=== PATIENT | female | born 1995 | race Caucasian/White ===

== ENCOUNTER 2017-11-11 17:17 | Inpatient (IN) | payer OTHER ==
[2017-11-11 18:10] VITALS: BMI 25.0
[2017-11-11 18:31] LABS: #Basophils 0.1 thou/uL (0.0-0.2); #Eosinphils 0.3 thou/uL (0.0-0.7); #Lymphocytes 2.4 thou/uL (1.20-3.40); #Monocytes 1.3 thou/uL (0.11-0.59); #Neutrophils 6.2 thou/uL (1.40-6.50); %Basophils 0.7 % (0.0-1.0); %Eosinophils 3.3 % (0.0-10.0); %Lymphocytes 23.1 % (21.0-51.0); %Monocytes 12.7 % (0.0-10.0); %Neutrophils 60.1 % (42.0-75.0); Hemoglobin 13.4 g/dL (12.0-16.0); Mean Corpuscular HGB CONC 33.4 g/dL (32.0-36.0); Mean Corpuscular Hemoglobin 31.9 pg (27.0-31.0); Mean Corpuscular Volume 95.7 fl (81.0-99.0); Mean Platelet Volume 5.7 fL (7.4-10.4); Platelet Count 591 thou/uL (130-400); RBC Distribution Width 11.3 % (11.5-14.5); Red Blood Cell (RBC) Count 4.19 mill/uL (4.20-5.40); White Blood Cell (WBC) Count 10.4 thou/uL (4.8-10.8)
[2017-11-11] MEDS: Sodium Chloride 0.9% 1,000 ML IV SCH (18:53)
[2017-11-11 18:58] LABS: ALT (SGPT) 11 U/L (8-55); AST (SGOT) 14 U/L (5-34); Albumin 4.3 g/dL (3.5-5.0); Alkaline Phosphatase 77 U/L (40-150); Anion Gap 13 mmol/L (10-20); BUN (Urea Nitrogen) 7 mg/dL (7.0-18.7); Bilirubin, Total 0.5 mg/dL (0.2-1.2); CRP (Inflammatory) 2.51 mg/dL (= or < 0.5); Calc. Creatinine Clearance 115 mL/min (70-130); Calcium 9.9 mg/dL (7.8-10.44); Carbon Dioxide 25 mmol/L (22-29); Chloride 104 mmol/L (98-107); Estimated GFR-MDRD Greater than 90; Globulin 4.5 g/dL (2.4-3.5); Glucose 95 mg/dL (70-105); Protein, Total 8.8 g/dL (6.0-8.3); Sodium 138 mmol/L (136-145)
[2017-11-11] MEDS ORDERED: Sodium Chloride 0.9% 1,000 ML IV SCH (19:00)
[2017-11-11 20:13] LABS: Bilirubin Negative (Negative); Blood, Urine Negative (Negative); Clarity CLEAR (Clear); Glucose, Urine (Dipstick) Negative (Negative); Leukocyte Small (Negative); Nitrite Negative (Negative); Protein, Urine (Dipstick) Negative (Neg-Trace); Specific Gravity, Urine 1.018 (1.002-1.036)
[2017-11-11 20:16] LABS: Bacteria/HPF Rare-Few HPF (None Seen); Hyaline Casts/LPF 0-3 HYALINE CAST LPF (0-3 Hyaline); Pathc Cast-AUWi Flag 0.13 (0-2.49); Squamous Epithelial 0-3 HPF (0-3)
[2017-11-11] MEDS: traMADol HCl 50 MG TAB PO PRN (21:54)
[2017-11-11] MEDS ORDERED: Acetaminophen 325 MG TAB PO PRN (21:57)
[2017-11-11] MEDS ORDERED: Zolpidem Tartrate 5 MG TAB PO PRN (21:57)
--- NOTE | 2017-11-11 22:38 | HP ---
PRIMARY CARE PHYSICIAN: Dr. Arnold Alicea at [facility]. CHIEF COMPLAINT: Bloody diarrhea. HISTORY OF PRESENT ILLNESS: Ms. Jama is a pleasant 22-year-old lady who was seen at [facility] on 11/11/2017, after she was sent to the hospital for direct admission by her gas troenterologist. She reports that she has been having diffuse abdominal discomfort as well as bloody diarrhea over sev eral days. She reports having multiple bloody bowel movements today. She also reports feeling light headed once today. She denies any chest pain or shortness of breath. She denies any fevers or chill s. She has not eaten most of today. She reports that she was on Remicade for the last 4 years. She was sent to the hospital for further management while awaiting approval for Humira. REVIEW OF SYSTEMS: The following complete review of systems was negative, unless otherwise mentioned in the HPI or below: Constitutional: Weight loss or gain, ability to conduct usual activities. Skin: Rash, itching. Eyes: Double vision, pain. ENT/Mouth: Nose bleeding, neck stiffness, pain, tenderness. Cardiovascular: Palpitations, dyspnea on exertion, orthopnea. Respiratory: Shortness of breath, wheezing, cough, hemoptysis, fever, or night sweats. Gastrointestinal: Poor appetite, abdominal pain, heartburn, nausea, vomiting, constipation, or diarr hea. Genitourinary: Urgency, frequency, dysuria, nocturia. Musculoskeletal: Pain, swelling. Neurologic/Psychiatric: Anxiety, depression. Allergy/Immunologic: Skin rash, bleeding tendency. PAST MEDICAL HISTORY: Significant for ulcerative colitis and Crohn's disease. PAST SURGICAL HISTORY: Significant for right hemicolectomy. ALLERGIES: CODEINE. CURRENT MEDICATIONS: Six-mercaptopurine 50 mg daily. SOCIAL HISTORY: Patient denies tobacco use, alcohol use, or recreational drug use. FAMILY HISTORY: Significant for Crohn's disease and ulcerative colitis in her mother and grandfather . PHYSICAL EXAMINATION: GENERAL: Ms. Jama is awake and alert, not in acute distress. VITAL SIGNS: She is afebrile. Blood pressure is 111/70, pulse is 86. She is breathing at rate of 1 4 and saturating 100% on room air. EYES: No scleral icterus, no conjunctival pallor. ENT: Moist mucosal membranes, no oropharyngeal erythema or exudates. NECK: Supple, nontender, normal range of movement, trachea is midline. RESPIRATORY: Accessory muscles of breathing are not active. Chest wall movements are symmetric bila terally. LUNGS: Clear to auscultation without wheeze, rhonchi, or crepitations. CARDIOVASCULAR: S1 and S2 are heard, regular. Peripheral pulses are palpable. No carotid bruit, no pericardial rub. ABDOMEN: Soft, nontender, bowel sounds heard, no hepatomegaly, no splenomegaly. EXTREMITIES: She has a scar over the abdomen. NEUROLOGIC: Cranial nerves II-XII are intact, deep tendon reflexes are 2+. MUSCULOSKELETAL: Power is 5/5 in all 4 extremities. Normal range of movement at all major extremity joints. LYMPHATIC: No cervical lymphadenopathy. SKIN: No rashes or subcutaneous nodules. PSYCHIATRIC: Normal mood, normal affect, patient is oriented to person, place, and time. LABORATORY DATA: Ms. Muller labs and investigations were reviewed. She has a normal white count, normal hemoglobin, elevated platelet count of 591,000, last known platelet count was 435,000 on 10/25, normal electrolytes, normal creatinine, elevated C-reactive protein of 2.51, normal albumin a nd urinalysis that is positive for ketones and small amount of leukocyte esterase. ASSESSMENT AND PLAN: Ms. Valverde is a pleasant 22-year-old lady who was seen at [facility] on 11/11/2017. Her problem list includes: 1. Bloody diarrhea: Due to flareup of Crohn's and ulcerative colitis. 2. Ulcerative colitis/Crohn's disease: Patient has been started on intravenous steroids by Gastroen terology Service. She does not wish to take tonight's dose because of the possibility that it will k eep her up during the night. She will start steroids in the morning. She is also awaiting approval for Humira. 3. Thrombocythemia: Chronic, likely reactive. We will recheck platelet count. Many thanks for allowing me to participate in your patient's care. Please feel free to contact me wi th any questions or concerns. LEVEL OF RISK: Moderate. LEVEL OF COMPLEXITY: Moderate.
--- NOTE | 2017-11-12 01:46 | CON ---
DATE OF CONSULTATION: 11/11/2017 HISTORY OF PRESENT ILLNESS: The patient is a 22-year-old female, patient of Dr. Onur ray h a long history of Crohn's disease. She reports over the last several weeks, she has had progressiv leela worsening diarrhea. She reports the diarrhea is mostly blood with little bit of mucus and very l ittle stool. She has 1-2 tablespoons every 20-30 minutes, particularly worsened if she is up and wal maurice around. She reports diffuse abdominal discomfort, but not significant pain. She reports she gee s had no vomiting, but she does feel nausea, she has not had much p.o. intake. She has lost 10 pound s over the last several weeks. She has been on Remicade and 6-MP, but this has recently been stopped and she is due to start Humira this Wednesday. She does not like oral steroids because they interfere with her sleep. PAST MEDICAL HISTORY: Anxiety, asthma, indeterminate colitis. PAST SURGICAL HISTORY: Includes right hemicolectomy secondary to perforation. ALLERGIES: CODEINE. MEDICATIONS: At this present time include "enema" 100 mg per 60 mL 1 enema every night for 14 days, Remicade 600 mg at 10 mg/kg every 8 weeks, 6-mercaptopurine 50 mg 1 p.o. daily, Restasis eyedrops. SOCIAL HISTORY: She drinks rarely. Does not smoke. FAMILY HISTORY: Significant for autoimmune disease. REVIEW OF SYSTEMS: Ten systems were reviewed and negative for above. PHYSICAL EXAMINATION: VITAL SIGNS: Shows temperature 99.5, pulse 82, respiratory rate 18, blood pressure 105/79. HEENT: Unremarkable. NECK: Supple. CHEST: Clear. CARDIOVASCULAR: Regular rate and rhythm. ABDOMEN: Soft, nontender, without organomegaly or masses. RECTAL: Deferred. EXTREMITIES: Normal. NEUROLOGIC: Nonfocal. LABORATORY DATA: Shows normal white count of 10.4, hemoglobin 13.4, hematocrit of 40.2, platelet cou nt 591. Chemistries significant for C-reactive protein 2.51. Total protein 88, globulin 45. Last p rocedure was performed by the Dr. Mohr on 12/17/2016 showed ileal to be normal and anastomosis was normal. Descending and transverse colon were normal. Some scarred sigmoid colon was normal other th an scarring and eroded vascular plaque was in the rectum, indicating very mild proctitis. Prior to t hat in 07/23/2017, colonoscopy showed fairly normal appearing colon. Laboratory showed CMV DNA Ultra quant was negative. Also on October chemistries were normal. Lipase was 16. CRP was 0.87. Sed ra te was 10. CBC was essentially normal. Histoplasma antigen was less than 0.5. Stool was presence o f elevated fecal lactoferrin. C. diff was negative. Prior biopsies from December showed chronic mod erate active colitis and rectal biopsies and chronic mild active colitis and sigmoid biopsies. Prome kayla labs showed detectable serum infliximab and detectable antibodies to infliximab. ASSESSMENT: 1. A 22-year-old female with history of indeterminate colitis, now with worsening abdominal discomfo rt and bloody diarrhea. The diarrhea sounds like if it is almost anal outlet bleeding or possibly a proctitis related bleeding. She did not have a large amount of associated diarrhea. Therefore, I do not think that she has a colitis affecting more proximal portions of the colon. 2. Right colon resection secondary to perforation. RECOMMENDATIONS: 1. We will continue 6-MP, we will start some oral steroids after tonight. 2. Rehydrate. 3. I think we will probably need to do a colonoscopy on this patient to further elucidate the extent of her active disease. 4. Agree with switching from Remicade to Humira, we will see if we were able to obtain Humira in the hospital or bringing in her Humira for loading.
[2017-11-12] MEDS: Sodium Chloride 0.9% 1,000 ML IV SCH ×5 (02:30→18:54)
[2017-11-12 04:45] LABS: Anion Gap 12 mmol/L (10-20); BUN (Urea Nitrogen) 4 mg/dL (7.0-18.7); Calc. Creatinine Clearance 126 mL/min (70-130); Calcium 8.6 mg/dL (7.8-10.44); Carbon Dioxide 21 mmol/L (22-29); Chloride 108 mmol/L (98-107); Estimated GFR-MDRD Greater than 90; Glucose 97 mg/dL (70-105); Potassium 3.8 mmol/L (3.5-5.1); Sodium 137 mmol/L (136-145)
[2017-11-12 04:58] LABS: #Eosinphils 0.4 thou/uL (0.0-0.7); #Lymphocytes 2.2 thou/uL (1.20-3.40); #Monocytes 1.4 thou/uL (0.11-0.59); %Basophils 0.4 % (0.0-1.0); %Eosinophils 3.3 % (0.0-10.0); %Lymphocytes 20.1 % (21.0-51.0); %Monocytes 12.6 % (0.0-10.0); %Neutrophils 63.6 % (42.0-75.0); Hemoglobin 11.2 g/dL (12.0-16.0); Mean Corpuscular HGB CONC 33.7 g/dL (32.0-36.0); Mean Corpuscular Hemoglobin 32.2 pg (27.0-31.0); Mean Corpuscular Volume 95.7 fl (81.0-99.0); Mean Platelet Volume 5.9 fL (7.4-10.4); Platelet Count 465 thou/uL (130-400); RBC Distribution Width 11.2 % (11.5-14.5); Red Blood Cell (RBC) Count 3.47 mill/uL (4.20-5.40)
[2017-11-12] MEDS: traMADol HCl 50 MG TAB PO PRN (06:12)
--- NOTE | 2017-11-12 09:58 | PDOC.PN ---
- Subjective Encounter Start Date: 11/12/17 Encounter Start Time: 07:00 -: old records requested/rev pt has hematochesia and diarrhoea, no fever Patient seen and examined. No overnight events - Objective MAR Reviewed: Yes Vital Signs & Weight: Vital Signs (12 hours) Temp Pulse Resp BP Pulse Ox 11/12/17 08:50 99.4 F 104 H 18 99 11/12/17 06:55 99.4 F 104 H 18 111/69 99 Weight Weight 128 lb 8 oz I&O: 11/11/17 11/12/17 11/13/17 06:59 06:59 06:59 Intake Total 1900 Balance 1900 Result Diagrams: 11/12/17 04:10 11/12/17 04:10 Phys Exam - Physical Examination Constitutional: NAD HEENT: PERRLA, moist MMs, sclera anicteric Neck: no JVD, supple Respiratory: no wheezing, no rales, no rhonchi Cardiovascular: RRR, no significant murmur, no rub Gastrointestinal: soft, non-tender, no distention, positive bowel sounds Musculoskeletal: no edema, pulses present Neurological: non-focal, normal sensation Lymphatic: no nodes Psychiatric: normal affect, A&O x 3 Skin: no rash, normal turgor Dx/Plan (1) Diarrhea Code(s): R19.7 - DIARRHEA, UNSPECIFIED Status: Acute (2) Exacerbation of ulcerative colitis Code(s): K51.90 - ULCERATIVE COLITIS, UNSPECIFIED, WITHOUT COMPLICATIONS Status: Acute (3) Hematochezia Code(s): K92.1 - MELENA Status: Acute (4) Anemia in chronic illness Code(s): D63.8 - ANEMIA IN OTHER CHRONIC DISEASES CLASSIFIED ELSEWHERE Status : Chronic - Plan cont current plan of care * continue ivf * continue solumedrol * GI following * medication reviewed as below * symptomatic treatment. Review of Systems - Review of Systems Constitutional: negative: fever, chills, sweats, weakness, malaise, other Eyes: negative: Pain, Vision Change, Conjunctivae Inflammation, Eyelid Inflammation, Redness, Other ENT: negative: Ear Pain, Ear Discharge, Nose Pain, Nose Discharge, Nose Congestion, Mouth Pain, Mouth Swelling, Throat Pain, Throat Swelling, Other Respiratory: negative: Cough, Dry, Shortness of Breath, Hemoptysis, SOB with Excertion, Pleuritic Pain, Sputum, Wheezing Cardiovascular: negative: chest pain, palpitations, orthopnea, paroxysmal nocturnal dyspnea, edema, light headedness, other Gastrointestinal: Diarrhea, Hematochezia. negative: Nausea, Vomiting, Abdominal Pain, Constipation, Melena, Other Genitourinary: negative: Dysuria, Frequency, Incontinence, Hematuria, Retention , Other Musculoskeletal: negative: Neck Pain, Shoulder Pain, Arm Pain, Back Pain, Hand Pain, Leg Pain, Foot Pain, Other Skin: negative: Rash, Lesions, [place], Bruising, Other Neurological: negative: Weakness, Numbness, Incoordination, Change in Speech, Confusion, Seizures, Other - Medications/Allergies Allergies/Adverse Reactions: Allergies Allergy/AdvReac Type Severity Reaction Status Date / Time codeine Allergy Verified 11/11/17 22:33 Medications: Current Medications Acetaminophen (Tylenol) 650 mg PO Q4H PRN PRN Reason: Headache/Fever or Pain Sodium Chloride (Normal Saline 0.9%) 1,000 mls @ 125 mls/hr IV .Q8H [facility] Last Admin: 11/12/17 02:30 Dose: 1,000 mls Mercaptopurine (Purinethol) 50 mg PO DAILY [facility] Last Admin: 11/12/17 08:26 Dose: Not Given Methylprednisolone Sodium Succinate (Solu-Medrol) 20 mg IVP 0600,1200,1800 [facility] Last Admin: 11/12/17 06:08 Dose: 20 mg Tramadol HCl (Ultram) 50 mg PO Q8H PRN PRN Reason: Moderate Pain (4-6) Last Admin: 11/12/17 06:12 Dose: 50 mg Zolpidem Tartrate (Ambien) 5 mg PO HSPRN PRN PRN Reason: Insomnia
[2017-11-12] MEDS ORDERED: Sodium Chloride 0.9% 10 ML ONE (12:41)
--- NOTE | 2017-11-12 18:58 | PRG ---
DATE OF SERVICE: 11/12/2017 SUBJECTIVE: The patient is feeling better today. She reports the ulcers in her mouth have improved. She has not had many bowel movements today, but she reports she is not eating as well. She says rebecca enciso is scared to eat because of the abdominal discomfort that this will cause. OBJECTIVE: VITAL SIGNS: Temperature 98.0, pulse of 70, respiratory rate 14, blood pressure 106/63. CHEST: Clear. CARDIOVASCULAR: Regular rate and rhythm. ABDOMEN: Benign. LABORATORY DATA: Shows a white blood cell count of 11.0, hemoglobin 11.2, hematocrit 33.2. Chemistr ies shows CO2 of 21. ASSESSMENT: 1. Indeterminate colitis flare. 2. History of right colon resection. RECOMMENDATIONS: 1. Flexible sigmoidoscopy in a.m. 2. Continue 6-MP. 3. Continue IV steroids. 4. Begin Humira when available.
[2017-11-12] MEDS: MERCAPTOPURINE 50 MG PO SCH (21:18)
[2017-11-13] MEDS: traMADol HCl 50 MG TAB PO PRN ×4 (00:01→21:03)
[2017-11-13] MEDS: Sodium Chloride 0.9% 1,000 ML IV SCH ×3 (02:30→17:17)
[2017-11-13] MEDS ORDERED: Ondansetron HCl/PF 4 MG/2 ML Vial IVP PRN (09:04)
[2017-11-13] MEDS ORDERED: Promethazine HCl 25 MG/ML VIAL IM PRN (09:04)
[2017-11-13] MEDS ORDERED: Promethazine HCl 25 MG/ML VIAL SLOW IVP PRN (09:04)
[2017-11-13] MEDS ORDERED: PROPOFOL 200 MG/20 ML VIAL ONE (09:14)
--- NOTE | 2017-11-13 13:22 | OP ---
PREOPERATIVE DIAGNOSIS: Indeterminate colitis exacerbation. DESCRIPTION OF PROCEDURE: After informed consent was obtained, the patient was placed in the left la teral decubitus position. Anesthesia was administered per the Anesthesia Department. Forward-viewin g endoscope was inserted into the rectum after perianal inspection and rectal exam were normal. It w as passed to the midtransverse colon where the prep limited visualization. That area of the colon ap peared to be endoscopically normal. Beginning at approximately 65 cm from the anal verge, there was a circumferential colitis that involved internal left colon to the anus. Biopsies were taken randoml y from that area. There was granularity mucus and friability with bleeding consistent with ulcerativ e colitis. ASSESSMENT: 1. Diffuse colitis from the anus to 65 cm endoscopically consistent with the UC - status post biopsy . 2. Otherwise normal unprepped flexible sigmoidoscopy. RECOMMENDATIONS: 1. Continue 6-MP. 2. Continue IV steroids. 3. Begin Humira when available.
--- NOTE | 2017-11-13 13:25 | PDOC.PN ---
- Subjective Encounter Start Date: 11/13/17 Encounter Start Time: 13:23 Patient seen and examined, scope for today, will await results, no new symptoms or complaints. Family at bedside, all questions answered. - Objective Vital Signs & Weight: Vital Signs (12 hours) Temp Pulse Resp BP Pulse Ox 11/13/17 11:30 98.0 F 70 14 121/64 100 11/13/17 10:00 98.4 F 75 14 11/13/17 07:05 98.4 F 75 14 109/67 100 Weight Admit Weight 128 lb Weight 128 lb I&O: 11/12/17 11/13/17 11/14/17 06:59 06:59 06:59 Intake Total 3520 Balance 3520 Result Diagrams: 11/12/17 04:10 11/12/17 04:10 Phys Exam - Physical Examination Constitutional: NAD HEENT: PERRLA, moist MMs, sclera anicteric Neck: no nodes, no JVD Respiratory: no wheezing, no rales, no rhonchi Cardiovascular: RRR, no significant murmur Gastrointestinal: soft, no distention mildly tender to palpation Musculoskeletal: no edema, pulses present Neurological: non-focal, normal sensation Lymphatic: no nodes Psychiatric: normal affect, A&O x 3 Skin: no rash Dx/Plan (1) Diarrhea Code(s): R19.7 - DIARRHEA, UNSPECIFIED Status: Acute (2) Exacerbation of ulcerative colitis Code(s): K51.90 - ULCERATIVE COLITIS, UNSPECIFIED, WITHOUT COMPLICATIONS Status: Acute (3) Hematochezia Code(s): K92.1 - MELENA Status: Acute (4) Anemia in chronic illness Code(s): D63.8 - ANEMIA IN OTHER CHRONIC DISEASES CLASSIFIED ELSEWHERE Status : Chronic - Plan * scope for today * pain control * cont w/ IV steroids and current medical management * case and plan d/w patient and family at length, they understand and agree with this plan
[2017-11-13] MEDS: MERCAPTOPURINE 50 MG PO SCH (21:03)
[2017-11-14] MEDS: Sodium Chloride 0.9% 1,000 ML IV SCH ×3 (00:30→17:33)
[2017-11-14] MEDS: traMADol HCl 50 MG TAB PO PRN ×4 (03:47→22:51)
--- NOTE | 2017-11-14 10:40 | PDOC.PN ---
- Subjective Encounter Start Date: 11/14/17 Encounter Start Time: 10:38 Patient seen and examined, no new issues or complaints. - Objective Vital Signs & Weight: Vital Signs (12 hours) Temp Pulse Resp BP Pulse Ox 11/14/17 08:00 97.5 F L 56 L 16 11/14/17 07:20 97.5 F L 56 L 16 112/71 100 Weight Admit Weight 128 lb Weight 128 lb I&O: 11/13/17 11/14/17 11/15/17 06:59 06:59 06:59 Intake Total 3520 1310 Balance 3520 1310 Result Diagrams: 11/12/17 04:10 11/12/17 04:10 Phys Exam - Physical Examination Constitutional: NAD HEENT: PERRLA, moist MMs Neck: no nodes, no JVD Respiratory: no wheezing, no rales Cardiovascular: RRR, no significant murmur Gastrointestinal: soft, no distention, positive bowel sounds Musculoskeletal: no edema, pulses present Neurological: non-focal, normal sensation Lymphatic: no nodes Psychiatric: normal affect, A&O x 3 Skin: no rash, normal turgor Dx/Plan (1) Diarrhea Code(s): R19.7 - DIARRHEA, UNSPECIFIED Status: Acute (2) Exacerbation of ulcerative colitis Code(s): K51.90 - ULCERATIVE COLITIS, UNSPECIFIED, WITHOUT COMPLICATIONS Status: Acute (3) Hematochezia Code(s): K92.1 - MELENA Status: Acute (4) Anemia in chronic illness Code(s): D63.8 - ANEMIA IN OTHER CHRONIC DISEASES CLASSIFIED ELSEWHERE Status : Chronic - Plan * continue current tx plan * IV steroids * valeria approval pending * further management per GI * case and plan d/w patient's mother and patient at length, they understand and agree with this plan
--- NOTE | 2017-11-14 14:33 | PRG ---
DATE OF SERVICE: 11/14/2017 SUBJECTIVE: The patient continues to have blood, abdominal cramps, poor p.o. intake. She has not ga ined much benefit from the steroids. OBJECTIVE: VITAL SIGNS: Temperature 97.5, pulse 56, respiratory rate 16, and blood pressure 112/71. CHEST: Clear. CARDIOVASCULAR: Regular rate and rhythm. ABDOMEN: Soft, slightly tender in the lower quadrants. LABORATORY DATA: Shows no new labs. ASSESSMENT: Crohn exacerbation - the patient is not getting much benefit from steroids. RECOMMENDATIONS: 1. We will switch to as soon as it arrives, this is supposed to be on Wednesday. 2. Continue IV steroids. 3. Continue 6-MP. 4. Repeat labs.
[2017-11-14] MEDS: MERCAPTOPURINE 50 MG PO SCH (22:50)
[2017-11-15] MEDS: Sodium Chloride 0.9% 1,000 ML IV SCH ×3 (01:25→17:33)
[2017-11-15] MEDS: traMADol HCl 50 MG TAB PO PRN ×4 (05:18→23:05)
[2017-11-15 06:15] LABS: ALT (SGPT) 8 U/L (8-55); AST (SGOT) 9 U/L (5-34); Albumin 3.3 g/dL (3.5-5.0); Alkaline Phosphatase 53 U/L (40-150); Anion Gap 12 mmol/L (10-20); BUN (Urea Nitrogen) 9 mg/dL (7.0-18.7); Bilirubin, Total 0.4 mg/dL (0.2-1.2); Calc. Creatinine Clearance 136 mL/min (70-130); Calcium 8.7 mg/dL (7.8-10.44); Carbon Dioxide 25 mmol/L (22-29); Chloride 103 mmol/L (98-107); Estimated GFR-MDRD Greater than 90; Globulin 3.4 g/dL (2.4-3.5); Glucose 90 mg/dL (70-105); Potassium 4.1 mmol/L (3.5-5.1); Protein, Total 6.7 g/dL (6.0-8.3); Sodium 136 mmol/L (136-145)
[2017-11-15 06:22] LABS: Hemoglobin 11.7 g/dL (12.0-16.0); MDiff Complete? YES; Mean Corpuscular HGB CONC 33.9 g/dL (32.0-36.0); Mean Corpuscular Hemoglobin 32.7 pg (27.0-31.0); Mean Corpuscular Volume 96.4 fl (81.0-99.0); Mean Platelet Volume 6.3 fL (7.4-10.4); Platelet Count 506 thou/uL (130-400); RBC Distribution Width 11.1 % (11.5-14.5); Red Blood Cell (RBC) Count 3.57 mill/uL (4.20-5.40); White Blood Cell (WBC) Count 9.9 thou/uL (4.8-10.8)
[2017-11-15 06:23] LABS: Band 6 % (5-11); Lymphocytes 29 % (21-51); Monocytes 15 % (0-10); Neutrophil 50 % (42-75); PLT Morphology Comment Appears Increased
--- NOTE | 2017-11-15 11:44 | PDOC.PN ---
- Subjective Encounter Start Date: 11/15/17 Encounter Start Time: 07:00 Patient seen and examined. No new complaints. No overnight events - Objective MAR Reviewed: Yes Vital Signs & Weight: Vital Signs (12 hours) Temp Pulse Resp BP Pulse Ox 11/15/17 08:00 98.1 F 58 L 14 11/15/17 07:05 98.1 F 58 L 14 119/78 99 Weight Admit Weight 128 lb Weight 128 lb I&O: 11/14/17 11/15/17 11/16/17 06:59 06:59 06:59 Intake Total 1310 3930.5 Balance 1310 3930.5 Result Diagrams: 11/15/17 04:51 11/15/17 04:51 Phys Exam - Physical Examination Constitutional: NAD HEENT: PERRLA, moist MMs, sclera anicteric Neck: no JVD, supple Respiratory: no wheezing, no rales, no rhonchi Cardiovascular: RRR, no significant murmur, no rub Gastrointestinal: soft, non-tender, no distention, positive bowel sounds Musculoskeletal: no edema, pulses present Neurological: non-focal, normal sensation, moves all 4 limbs Lymphatic: no nodes Psychiatric: normal affect, A&O x 3 Skin: no rash, normal turgor Dx/Plan (1) Diarrhea Code(s): R19.7 - DIARRHEA, UNSPECIFIED Status: Acute (2) Exacerbation of ulcerative colitis Code(s): K51.90 - ULCERATIVE COLITIS, UNSPECIFIED, WITHOUT COMPLICATIONS Status: Acute (3) Hematochezia Code(s): K92.1 - MELENA Status: Acute (4) Anemia in chronic illness Code(s): D63.8 - ANEMIA IN OTHER CHRONIC DISEASES CLASSIFIED ELSEWHERE Status : Chronic - Plan cont current plan of care, plan discussed w/ family * medication reviewed as below * symptomatic treatment * await Humira approval * GI following. Review of Systems - Review of Systems Constitutional: negative: fever, chills, sweats, weakness, malaise, other Eyes: negative: Pain, Vision Change, Conjunctivae Inflammation, Eyelid Inflammation, Redness, Other ENT: negative: Ear Pain, Ear Discharge, Nose Pain, Nose Discharge, Nose Congestion, Mouth Pain, Mouth Swelling, Throat Pain, Throat Swelling, Other Respiratory: negative: Cough, Dry, Shortness of Breath, Hemoptysis, SOB with Excertion, Pleuritic Pain, Sputum, Wheezing Cardiovascular: negative: chest pain, palpitations, orthopnea, paroxysmal nocturnal dyspnea, edema, light headedness, other Gastrointestinal: Diarrhea, Hematochezia. negative: Nausea, Vomiting, Abdominal Pain, Constipation, Melena, Other Genitourinary: negative: Dysuria, Frequency, Incontinence, Hematuria, Retention , Other Musculoskeletal: negative: Neck Pain, Shoulder Pain, Arm Pain, Back Pain, Hand Pain, Leg Pain, Foot Pain, Other Skin: negative: Rash, Lesions, [place], Bruising, Other Neurological: negative: Weakness, Numbness, Incoordination, Change in Speech, Confusion, Seizures, Other - Medications/Allergies Allergies/Adverse Reactions: Allergies Allergy/AdvReac Type Severity Reaction Status Date / Time codeine Allergy Verified 11/11/17 22:33 Medications: Current Medications Acetaminophen (Tylenol) 650 mg PO Q4H PRN PRN Reason: Headache/Fever or Pain Sodium Chloride (Normal Saline 0.9%) 1,000 mls @ 125 mls/hr IV .Q8H [facility] Last Admin: 11/15/17 09:45 Dose: 1,000 mls Methylprednisolone Sodium Succinate (Solu-Medrol) 20 mg IVP 0600,1200,1800 [facility] Last Admin: 11/15/17 11:25 Dose: 20 mg Mercaptopurine 50 Mg 0 each PO HS [facility] Last Admin: 11/14/17 22:50 Dose: 1 each Sodium Chloride (Flush - Normal Saline) 10 ml IVF PRN PRN PRN Reason: Saline Flush Tramadol HCl (Ultram) 50 mg PO Q8H PRN PRN Reason: Moderate Pain (4-6) Last Admin: 11/13/17 21:03 Dose: 50 mg Tramadol HCl (Ultram) 50 mg PO Q6H PRN PRN Reason: Pain 4-6 Last Admin: 11/15/17 11:25 Dose: 50 mg Zolpidem Tartrate (Ambien) 5 mg PO HSPRN PRN PRN Reason: Insomnia
[2017-11-15] MEDS ORDERED: Adalimumab 40 MG/0.8 ML SYRINGE SC SCH (15:45)
[2017-11-15] MEDS: MERCAPTOPURINE 50 MG PO SCH (22:50)
[2017-11-16] MEDS: Sodium Chloride 0.9% 1,000 ML IV SCH ×3 (01:27→17:44)
[2017-11-16] MEDS: traMADol HCl 50 MG TAB PO PRN ×4 (05:09→23:06)
--- NOTE | 2017-11-16 09:55 | PDOC.PN ---
- Subjective Encounter Start Date: 11/16/17 Encounter Start Time: 06:00 Patient seen and examined. No new complaints. No overnight events clinically appears better but per pt she is not eating enough - Objective MAR Reviewed: Yes Vital Signs & Weight: Vital Signs (12 hours) Temp Pulse Resp BP Pulse Ox 11/16/17 08:05 98.1 F 64 16 100 11/16/17 07:15 98.1 F 64 16 94/58 L 100 11/16/17 05:32 98 Weight Admit Weight 128 lb Weight 128 lb I&O: 11/15/17 11/16/17 11/17/17 06:59 06:59 06:59 Intake Total 3930.5 3470 Balance 3930.5 3470 Result Diagrams: 11/15/17 04:51 11/15/17 04:51 Phys Exam - Physical Examination Constitutional: NAD HEENT: PERRLA, moist MMs, sclera anicteric Neck: no JVD, supple Respiratory: no wheezing, no rales, no rhonchi Cardiovascular: RRR, no significant murmur, no rub Gastrointestinal: soft, non-tender, no distention, positive bowel sounds Musculoskeletal: no edema, pulses present Neurological: non-focal, normal sensation, moves all 4 limbs Psychiatric: normal affect, A&O x 3 Skin: no rash, normal turgor Dx/Plan (1) Diarrhea Code(s): R19.7 - DIARRHEA, UNSPECIFIED Status: Acute (2) Exacerbation of ulcerative colitis Code(s): K51.90 - ULCERATIVE COLITIS, UNSPECIFIED, WITHOUT COMPLICATIONS Status: Acute (3) Hematochezia Code(s): K92.1 - MELENA Status: Acute (4) Anemia in chronic illness Code(s): D63.8 - ANEMIA IN OTHER CHRONIC DISEASES CLASSIFIED ELSEWHERE Status : Chronic - Plan cont current plan of care * humira given * on IVF * on IV steroid * will defer discharge decision to GI * medication reviewed as below * symptomatic treatment. Review of Systems - Review of Systems ENT: negative: Ear Pain, Ear Discharge, Nose Pain, Nose Discharge, Nose Congestion, Mouth Pain, Mouth Swelling, Throat Pain, Throat Swelling, Other Respiratory: negative: Cough, Dry, Shortness of Breath, Hemoptysis, SOB with Excertion, Pleuritic Pain, Sputum, Wheezing Cardiovascular: negative: chest pain, palpitations, orthopnea, paroxysmal nocturnal dyspnea, edema, light headedness, other Gastrointestinal: Diarrhea. negative: Nausea, Vomiting, Abdominal Pain, Constipation, Melena, Hematochezia, Other Genitourinary: negative: Dysuria, Frequency, Incontinence, Hematuria, Retention , Other Musculoskeletal: negative: Neck Pain, Shoulder Pain, Arm Pain, Back Pain, Hand Pain, Leg Pain, Foot Pain, Other Skin: negative: Rash, Lesions, [place], Bruising, Other - Medications/Allergies Allergies/Adverse Reactions: Allergies Allergy/AdvReac Type Severity Reaction Status Date / Time codeine Allergy Verified 11/11/17 22:33 Medications: Current Medications Acetaminophen (Tylenol) 650 mg PO Q4H PRN PRN Reason: Headache/Fever or Pain Sodium Chloride (Normal Saline 0.9%) 1,000 mls @ 125 mls/hr IV .Q8H [facility] Last Admin: 11/16/17 01:27 Dose: 1,000 mls Methylprednisolone Sodium Succinate (Solu-Medrol) 20 mg IVP 0600,1200,1800 [facility] Last Admin: 11/16/17 05:07 Dose: 20 mg Mercaptopurine 50 Mg 0 each PO HS [facility] Last Admin: 11/15/17 22:50 Dose: 1 each Sodium Chloride (Flush - Normal Saline) 10 ml IVF PRN PRN PRN Reason: Saline Flush Tramadol HCl (Ultram) 50 mg PO Q8H PRN PRN Reason: Moderate Pain (4-6) Last Admin: 11/13/17 21:03 Dose: 50 mg Tramadol HCl (Ultram) 50 mg PO Q6H PRN PRN Reason: Pain 4-6 Last Admin: 11/16/17 05:09 Dose: 50 mg Zolpidem Tartrate (Ambien) 5 mg PO HSPRN PRN PRN Reason: Insomnia
--- NOTE | 2017-11-16 12:26 | PRG ---
DATE OF SERVICE: 11/16/2017 Ms. Jama is still having diarrhea, mainly just small amounts of mucoid stool and blood 6-10 times a day with some tenesmus. She is not eating much. MEDICATIONS: 1. Tylenol p.r.n. 2. 6-MP 50 mg daily. 3. Methylprednisolone 20 mg IV q.8h. 4. Tramadol p.r.n. PHYSICAL EXAMINATION: VITAL SIGNS: Temperature is 98, pulse 64, blood pressure 168/94 to 58. ABDOMEN: Soft and nontender. There is no rebound or guarding. EXTREMITIES: No clubbing, cyanosis or edema. LABORATORY STUDIES: White count is 9.9, this was yesterday, hemoglobin was 11.7, platelet count was 506. Yesterday, patient did receive Humira 40 mg injections x4 for initial loading dose. Stool has been negative. Biopsies negative for C. diff and culture. Biopsies are pending. ASSESSMENT: Ulcerative colitis with previous surgery. She had a good response to Remicade for many years and 6-MP, but it has still not been working for her. She did have an infusion of Remicade a co uple weeks ago which she did not respond to. She tried some Entocort with no improvement and the rec nicole suppositories really did not help. PLAN: 1. Continue induction with Humira. 2. We will increase prednisone to 40 q.8h. 3. We will await biopsies. 4. Place her on low residue diet. 5. She can start getting out of bed and walking in the halls. 6. PlexiPulses so she does not get DVTs.
[2017-11-16] MEDS: Saccharomyces boulardii 250 MG CAP PO SCH (14:33)
[2017-11-16] MEDS: MERCAPTOPURINE 50 MG PO SCH (23:06)
[2017-11-17] MEDS: Sodium Chloride 0.9% 1,000 ML IV SCH ×3 (02:59→19:57)
[2017-11-17] MEDS: traMADol HCl 50 MG TAB PO PRN ×2 (05:26→12:08)
[2017-11-17] MEDS: Saccharomyces boulardii 250 MG CAP PO SCH (08:47)
[2017-11-17] MEDS: Dicyclomine 10 MG CAP PO SCH ×2 (17:43→20:42)
[2017-11-17] MEDS: MERCAPTOPURINE 50 MG PO SCH (20:42)
--- NOTE | 2017-11-17 21:07 | PRG ---
DATE OF SERVICE: 11/17/2017 SUBJECTIVE: Ms. Jama states that today she actually ate and did not have diarrhea right away. She is still having some cramping pain and the nurses notes, she likes to use Ultram for that. She did decide to go ahead and take this increased dose of Solu-Medrol 40 IV q.6 hours as ordered yesterday. PRESENT MEDICATIONS: Tylenol p.r.n., Bentyl 10 before meals and bedtime, mercaptopurine 50 mg, Solu- Medrol 40 IV q.8 hours, Florastor, tramadol, zolpidem, normal saline at 125 an hour. OBJECTIVE: VITAL SIGNS: Temperature 96, pulse 60, respirations 16, blood pressure 112/72. LUNGS: Clear. HEART: Regular rate and rhythm without clicks or murmurs. ABDOMEN: Soft and is certainly nontender. No rebound or guarding. LABORATORY DATA: No labs today or the last 2 days. The pathology is back. The biopsy showed severe active ulcerative colitis. Recent labs negative for CMV DNA and histoplasmosis. I do not see a rec ent QuantiFERON here at this hospital, but I think she is had in the outpatient setting. ASSESSMENT AND PLAN: Severe ulcerative colitis, descending colon, status post induction with Humira. She was on Remicade previously, but developed antibodies, no longer having affect. She is on stero ids 40 mg IV q.8 hours of Solu-Medrol and we placed her on some Bentyl. She is up and walking, doing yoga in the room . She is on Lovenox subcu now. She is getting PlexiPulses at night. We hope, we will start seeing some improvement in the next 24-48 hours and maybe get home in the next 24-48 h ours. We will repeat labs tomorrow.
[2017-11-18] MEDS: traMADol HCl 50 MG TAB PO PRN ×3 (03:37→16:04)
[2017-11-18] MEDS: Sodium Chloride 0.9% 1,000 ML IV SCH ×4 (04:17→22:37)
[2017-11-18] MEDS ORDERED: Sodium Chloride 0.9% 10 ML ONE (05:19)
[2017-11-18 05:59] LABS: Anion Gap 13 mmol/L (10-20); BUN (Urea Nitrogen) 9 mg/dL (7.0-18.7); Calc. Creatinine Clearance 151 mL/min (70-130); Carbon Dioxide 22 mmol/L (22-29); Chloride 107 mmol/L (98-107); Estimated GFR-MDRD Greater than 90; Glucose 108 mg/dL (70-105); Potassium 3.9 mmol/L (3.5-5.1); Sodium 138 mmol/L (136-145)
[2017-11-18 06:16] LABS: Band 10 % (5-11); Hemoglobin 12.3 g/dL (12.0-16.0); Lymphocytes 25 % (21-51); MDiff Complete? YES; Mean Corpuscular HGB CONC 33.3 g/dL (32.0-36.0); Mean Corpuscular Hemoglobin 31.7 pg (27.0-31.0); Mean Corpuscular Volume 95.2 fl (81.0-99.0); Metamyelocyte 1 % (0-0); Monocytes 12 % (0-10); Myelocyte 3 % (0-0); Neutrophil 49 % (42-75); PLT Morphology Comment Appears Increased; Platelet Count 469 thou/uL (130-400); RBC Distribution Width 11.4 % (11.5-14.5); Red Blood Cell (RBC) Count 3.87 mill/uL (4.20-5.40); White Blood Cell (WBC) Count 13.1 thou/uL (4.8-10.8)
--- NOTE | 2017-11-18 08:23 | PDOC.PN ---
- Subjective Encounter Start Date: 11/17/17 Encounter Start Time: 08:20 Subjective: seen and examined able to eat a little bit today - Objective Vital Signs & Weight: Vital Signs (12 hours) Temp Pulse Resp BP Pulse Ox 11/18/17 07:05 97.9 F 45 L 14 87/52 L 98 Weight Admit Weight 128 lb Weight 128 lb I&O: 11/17/17 11/18/17 11/19/17 06:59 06:59 06:59 Intake Total 3651 3661 Balance 3651 3661 Result Diagrams: 11/18/17 05:15 11/18/17 05:15 Phys Exam - Physical Examination Constitutional: NAD HEENT: PERRLA, moist MMs, sclera anicteric, TM's clear Neck: no nodes, no JVD, supple, full ROM Respiratory: no wheezing, no rales, no rhonchi, clear to auscultation bilateral Cardiovascular: RRR, no significant murmur, no rub Gastrointestinal: soft, positive bowel sounds Musculoskeletal: no edema, pulses present Dx/Plan (1) Diarrhea Code(s): R19.7 - DIARRHEA, UNSPECIFIED Status: Acute (2) Exacerbation of ulcerative colitis Code(s): K51.90 - ULCERATIVE COLITIS, UNSPECIFIED, WITHOUT COMPLICATIONS Status: Acute (3) Hematochezia Code(s): K92.1 - MELENA Status: Acute (4) Anemia in chronic illness Code(s): D63.8 - ANEMIA IN OTHER CHRONIC DISEASES CLASSIFIED ELSEWHERE Status : Chronic - Plan plan discussed w/ family, marriage and family social worker Pain management -: GI following--will use Bentyl * .
--- NOTE | 2017-11-18 08:28 | PDOC.PN ---
- Subjective Encounter Start Date: 11/18/17 Encounter Start Time: 08:25 Subjective: Seen and examined still having a lot of Gi issues - Objective Vital Signs & Weight: Vital Signs (12 hours) Temp Pulse Resp BP Pulse Ox 11/18/17 07:05 97.9 F 45 L 14 87/52 L 98 Weight Admit Weight 128 lb Weight 128 lb I&O: 11/17/17 11/18/17 11/19/17 06:59 06:59 06:59 Intake Total 3651 3661 Balance 3651 3661 Result Diagrams: 11/18/17 05:15 11/18/17 05:15 Phys Exam - Physical Examination Constitutional: NAD HEENT: PERRLA, moist MMs, sclera anicteric, TM's clear Neck: no nodes, no JVD, supple, full ROM Respiratory: no wheezing, no rales, no rhonchi, clear to auscultation bilateral Cardiovascular: RRR, no significant murmur, no rub Gastrointestinal: soft, no distention, positive bowel sounds tender Musculoskeletal: no edema, pulses present Dx/Plan (1) Diarrhea Code(s): R19.7 - DIARRHEA, UNSPECIFIED Status: Acute (2) Exacerbation of ulcerative colitis Code(s): K51.90 - ULCERATIVE COLITIS, UNSPECIFIED, WITHOUT COMPLICATIONS Status: Acute (3) Hematochezia Code(s): K92.1 - MELENA Status: Acute (4) Anemia in chronic illness Code(s): D63.8 - ANEMIA IN OTHER CHRONIC DISEASES CLASSIFIED ELSEWHERE Status : Chronic - Plan plan discussed w/ family, clinical social work aide On steroids and IVF -: GI still actively involved -appreciate their input * .
[2017-11-18] MEDS: Dicyclomine 10 MG CAP PO SCH ×4 (08:37→20:33)
[2017-11-18] MEDS: Saccharomyces boulardii 250 MG CAP PO SCH (08:40)
--- NOTE | 2017-11-18 20:43 | PRG ---
DATE OF SERVICE: 11/18/2017 SUBJECTIVE: Ms. Jama feels about the same. She ate a little better today, but she had 2 bowel mov ements today that was bloody. PHYSICAL EXAMINATION: VITAL SIGNS: Temperature is 98, pulse 58, blood pressure 117/68. ABDOMEN: Soft, nontender. LUNGS: Clear. HEART: Regular rate and rhythm without clicks or murmurs. ABDOMEN: Soft, nontender. LABORATORY STUDIES: White count 13, hemoglobin was 12, platelet count 469. Basic metabolic profile normal. ASSESSMENT: The patient with active colitis. Stool negative for Clostridium difficile on admission. Biopsies consistent with colitis, on Solu-Medrol 40 IV q.8 h., received Humira 4 days ago, waiting for that to take effect. Symptomatic care with antispasmodics. We will continue to follow.
[2017-11-18] MEDS: MERCAPTOPURINE 50 MG PO SCH (21:14)
[2017-11-19] MEDS: Sodium Chloride 0.9% 1,000 ML IV SCH ×2 (08:07→16:16)
[2017-11-19] MEDS: Saccharomyces boulardii 250 MG CAP PO SCH ×2 (08:08→19:39)
[2017-11-19] MEDS: traMADol HCl 50 MG TAB PO PRN ×3 (08:08→19:39)
[2017-11-19] MEDS: Dicyclomine 10 MG CAP PO SCH ×3 (08:12→19:07)
[2017-11-19] MEDS ORDERED: Dicyclomine 10 MG CAP PO PRN (17:17)
[2017-11-19] MEDS: Mesalamine DR 400 mg Capsule PO SCH (19:37)
[2017-11-19] MEDS: MERCAPTOPURINE 50 MG PO SCH (19:37)
[2017-11-19] MEDS: Enoxaparin Sodium 30 MG/0.3 ML SYRINGE SC SCH (19:39)
--- NOTE | 2017-11-19 23:05 | PRG ---
DATE OF SERVICE: 11/19/2017 SUBJECTIVE: Ms. Jama has not taking the dicyclomine, she does not like it. She prefers to take tr amadol, which she tries not to, to see how she is feeling. She had two bowel movements this morning, earlier that were a little bit bloody similar to what she has been having and only had one this afte rnoon and it was more formed and actual stool with no blood. The nurses note she did not really up a round very much, which she tries to be, but she had a quite a few visitors today. On talking with [facility] patient, she is taking her 6-MP from home. HOME MEDICATIONS: List on her medications, she also continues on Solu-Medrol 40 IV q.8 and Florastor once a day. She received 4 loading shots of Humira on Wednesday. The patient is currently in the shower. Physical examination was not performed. LABORATORY DATA: On reviewing labs, CMV was negative on 10/25/2017. Histoplasmosis negative on 10/08. C. diff was negative on 08/2017 as well as 11/11/2017. ASSESSMENT: Colitis, initially it was indeterminate colitis, felt to be ulcerative colitis. She had a perforation in the cecum spontaneously when she initially presented back in 2012. Subsequent [facility] endoscopies showed quite a bit of deep or serpiginous ulcerations in the sigmoid colon and rectu m, and it was felt that she probably have Crohn's and [facility] serologies along with a diagnosis of Crohn's. She has done well from 2013 until now with Remicade, but developed recurrent symptoms. Deng d negative Infectious Disease workup and then had labs showing antibodies to Remicade in low levels a nd that was a trough. She had already had a dose escalation a year before to 10 mg/kg and the decisi on was made to stop the medication and switched to Humira. In the interim, she became ill. She wish to trying some steroids at home, but does not want a dose escalate and ultimately was admitted to [facility] for worsening symptoms. Here she has had a negative C. diff. She received the Humira twan ts 5 days ago, was on Solu-Medrol 20, which we increased 2 days ago to 40 q.8 h. secondary to persist ent symptoms today. She may be starting to turn the corner with only 3 bowel movements today. Her v ital signs are stable. PLAN: We will double the probiotic to twice a day. We will recheck stool for C. diff. We will repe at all labs tomorrow including magnesium and phosphorus, sed rate and CRP. If she does not start to turn the corner soon, the next option would be to consider adding antibiotics for possible Crohn's an d make her n.p.o. and placing her on TPN and repeating endoscopy. These issues discussed with the mariely villanueva and Dr. Darden my partner will be covering over the weekend to follow along. I have added Del zicol 4.8 g a day.
[2017-11-20] MEDS: Sodium Chloride 0.9% 1,000 ML IV SCH ×3 (01:25→17:28)
[2017-11-20] MEDS: traMADol HCl 50 MG TAB PO PRN ×4 (01:25→20:30)
[2017-11-20 05:44] LABS: #Basophils 0.1 thou/uL (0.0-0.2); #Eosinphils 0.1 thou/uL (0.0-0.7); #Lymphocytes 2.6 thou/uL (1.20-3.40); #Neutrophils 8.9 thou/uL (1.40-6.50); %Basophils 0.6 % (0.0-1.0); %Eosinophils 0.6 % (0.0-10.0); %Lymphocytes 19.3 % (21.0-51.0); %Monocytes 14.5 % (0.0-10.0); %Neutrophils 65.1 % (42.0-75.0); Hemoglobin 12.4 g/dL (12.0-16.0); Mean Corpuscular HGB CONC 33.9 g/dL (32.0-36.0); Mean Corpuscular Hemoglobin 32.9 pg (27.0-31.0); Mean Corpuscular Volume 97.1 fl (81.0-99.0); Mean Platelet Volume 6.3 fL (7.4-10.4); Platelet Count 466 thou/uL (130-400); RBC Distribution Width 11.5 % (11.5-14.5); Red Blood Cell (RBC) Count 3.78 mill/uL (4.20-5.40); White Blood Cell (WBC) Count 13.7 thou/uL (4.8-10.8)
[2017-11-20 05:59] LABS: ALT (SGPT) 7 U/L (8-55); AST (SGOT) 7 U/L (5-34); Albumin 3.2 g/dL (3.5-5.0); Alkaline Phosphatase 52 U/L (40-150); Anion Gap 11 mmol/L (10-20); BUN (Urea Nitrogen) 6 mg/dL (7.0-18.7); Bilirubin, Total 0.4 mg/dL (0.2-1.2); Calc. Creatinine Clearance 127 mL/min (70-130); Calcium 9.1 mg/dL (7.8-10.44); Carbon Dioxide 26 mmol/L (22-29); Chloride 103 mmol/L (98-107); Estimated GFR-MDRD Greater than 90; Glucose 124 mg/dL (70-105); Magnesium 1.9 mg/dL (1.6-2.6); Potassium 4.1 mmol/L (3.5-5.1); Protein, Total 6.2 g/dL (6.0-8.3); Sodium 136 mmol/L (136-145)
[2017-11-20] MEDS: Saccharomyces boulardii 250 MG CAP PO SCH ×2 (09:23→20:07)
[2017-11-20] MEDS: Mesalamine DR 400 mg Capsule PO SCH ×3 (11:41→20:06)
--- NOTE | 2017-11-20 19:05 | PRG ---
DATE OF SERVICE: 11/20/2017 SUBJECTIVE: Overnight, the patient did well with decreasing abdominal pain this morning, had no acut e events or problems overnight. She has had approximately 4-8 semi-solid to liquid bowel movements o chidi the last 24 hours, all of which have been bloody. No associated abdominal pain with these bloody stools. She was placed on Delzicol within the last 24 hours and is tolerating the medication well. Currently, denies any nausea, vomiting, fevers, chills or shortness of breath. OBJECTIVE: VITAL SIGNS: Temperature 98.5, pulse 53, blood pressure 99/58, respiratory rate 16 and satting 100% on room air. GENERAL: The patient is lying comfortably in bed in no acute distress. Alert and oriented x4. CARDIOVASCULAR: Regular rate and rhythm with no discernible murmurs, gallops or rubs. RESPIRATORY: Clear to auscultation bilaterally with no wheezes or rales. ABDOMEN: Normoactive bowel sounds, soft. Mild tenderness to palpation in the lower abdominal quadra nts. Nondistended. EXTREMITIES: No cyanosis, clubbing or edema. LABORATORY DATA: CBC with a white blood cell count of 13.7, hemoglobin 12.4, hematocrit 36.7 and carline telets 466. Chemistry with a sodium of 136, potassium 4.1, chloride 103, CO2 of 26, BUN 6 and creati nine 0.63. ASSESSMENT AND PLAN: The patient is a 22-year-old female with past medical history of colitis, most consistent with Crohn's colitis presenting with acute flare. Crohn's colitis. Patient presenting with a history of colitis that was initially felt to be indeterm inate colitis when she presented back in 2012 with a cecal perforation. However, further serologies and colonoscopy with biopsies yield a diagnosis more of Crohn disease rather than ulcerative colitis. She was subsequently placed on Remicade and mercaptopurine and had done well with remission of dise ase until recently when she had more recurrent symptoms. Infectious Disease workup was negative with labs showing antibodies to Remicade at low level in the past, but the antibodies have escalated desp ite risk escalation of Remicade to 10 mg per kilograms. With the presence of antibodies to Remicade, this medication is no longer effective and was subsequently transferred to [email or web address] with induction dos ing this Wednesday with approximately 160 mg at that time. Her next dose of Humira would be in 2 weeks from Wednesday at approximately 80 mg dosing. Currently feeling better, but continues to have bloody roselyn wel movements consistent with Crohn's colitis exacerbation. RECOMMENDATIONS: 1. Continue Florastor probiotic twice daily. 2. Continue Delzicol and mercaptopurine for maintenance therapy for Crohn disease. 3. Her next dosing of Humira will be in approximately 1-1/2 weeks with 80 mg delivered at that time. 4. Advance diet as tolerated.
[2017-11-20] MEDS: Enoxaparin Sodium 30 MG/0.3 ML SYRINGE SC SCH (20:04)
[2017-11-20] MEDS: MERCAPTOPURINE 50 MG PO SCH (20:07)
[2017-11-21] MEDS: Sodium Chloride 0.9% 1,000 ML IV SCH ×3 (01:08→12:12)
[2017-11-21] MEDS: traMADol HCl 50 MG TAB PO PRN ×4 (02:14→21:36)
--- NOTE | 2017-11-21 05:13 | PDOC.PN ---
- Subjective Encounter Start Date: 11/20/17 Encounter Start Time: 05:12 Subjective: seen and exzmined still with bloogy diarhoea - Objective Vital Signs & Weight: Vital Signs (12 hours) Temp Pulse Resp BP 11/20/17 20:00 98.0 F 55 L 16 11/20/17 19:36 98.0 F 55 L 16 106/57 L Weight Admit Weight 128 lb Weight 128 lb I&O: 11/19/17 11/20/17 11/21/17 06:59 06:59 06:59 Intake Total 3240 3940 2270 Balance 3240 3940 2270 Result Diagrams: 11/20/17 05:17 11/20/17 05:17 Phys Exam - Physical Examination Constitutional: NAD HEENT: PERRLA, moist MMs, sclera anicteric, oral pharynx no lesions Neck: no nodes, no JVD, supple, full ROM Respiratory: no wheezing, no rales, clear to auscultation bilateral Cardiovascular: RRR, no significant murmur, no rub Gastrointestinal: positive bowel sounds Musculoskeletal: no edema Dx/Plan (1) Diarrhea Code(s): R19.7 - DIARRHEA, UNSPECIFIED Status: Acute (2) Exacerbation of ulcerative colitis Code(s): K51.90 - ULCERATIVE COLITIS, UNSPECIFIED, WITHOUT COMPLICATIONS Status: Acute (3) Hematochezia Code(s): K92.1 - MELENA Status: Acute (4) Anemia in chronic illness Code(s): D63.8 - ANEMIA IN OTHER CHRONIC DISEASES CLASSIFIED ELSEWHERE Status : Chronic - Plan plan discussed w/ family, PT/OT, sr. social media & mobile manager appreciate GI input -: decrease ivf rate and gradually advance diet * .
[2017-11-21] MEDS ORDERED: Hyoscyamine Sulfate SL 0.125 mg Tablet SL PRN (06:19)
[2017-11-21] MEDS: Saccharomyces boulardii 250 MG CAP PO SCH ×2 (09:08→21:32)
[2017-11-21] MEDS: Mesalamine DR 400 mg Capsule PO SCH ×3 (09:08→21:32)
--- NOTE | 2017-11-21 09:30 | PDOC.PN ---
- Subjective Encounter Start Date: 11/21/17 Encounter Start Time: 09:29 Subjective: Seen and examined --had a very rough night - Objective Vital Signs & Weight: Vital Signs (12 hours) Temp Pulse Resp BP Pulse Ox 11/21/17 08:00 98.0 F 51 L 14 115/71 100 Weight Admit Weight 128 lb Weight 128 lb I&O: 11/20/17 11/21/17 11/22/17 06:59 06:59 06:59 Intake Total 3940 2270 Balance 3940 2270 Result Diagrams: 11/20/17 05:17 11/20/17 05:17 Phys Exam - Physical Examination Constitutional: NAD HEENT: PERRLA, moist MMs, sclera anicteric, TM's clear Neck: no nodes, no JVD, supple, full ROM Respiratory: no wheezing, no rales, no rhonchi Cardiovascular: RRR, no significant murmur, no rub Gastrointestinal: positive bowel sounds Dx/Plan (1) Diarrhea Code(s): R19.7 - DIARRHEA, UNSPECIFIED Status: Acute (2) Exacerbation of ulcerative colitis Code(s): K51.90 - ULCERATIVE COLITIS, UNSPECIFIED, WITHOUT COMPLICATIONS Status: Acute (3) Hematochezia Code(s): K92.1 - MELENA Status: Acute (4) Anemia in chronic illness Code(s): D63.8 - ANEMIA IN OTHER CHRONIC DISEASES CLASSIFIED ELSEWHERE Status : Chronic - Plan plan discussed w/ family, continue antibiotics, PT/OT, neonatal social worker -Hopefully GI will adjust meds -: -Heating pad for comfort * .
[2017-11-21] MEDS: diphenhydrAMINE 25 MG CAP PO PRN ×2 (10:14→21:36)
--- NOTE | 2017-11-21 21:26 | PRG ---
DATE OF SERVICE: 11/21/2017 SUBJECTIVE: Overnight, the patient had increased abdominal pain and was nauseated that continued on to this morning. She attributed this to eating an increased diet of meats and cake as she was trying the food for her upcoming wedding. She was able to get some sleep this afternoon and upon waking, she said she feels much better. She continues to have approximately 5-6 bloody bowel movements per day and had attempted using the hyoscyamine overnight with little to no relief in her abdominal pain. Currently, denies any nausea, vomiting, fevers, chills, or shortness of breath. OBJECTIVE: VITAL SIGNS: Temperature 97.8, pulse 53, blood pressure 114/81, respiratory rate 12, satting 98% on room air. GENERAL: Lying in bed comfortably in no acute distress. Alert and oriented x4. CARDIOVASCULAR: Regular rate and rhythm with no discernible murmurs, gallops, or rubs. RESPIRATORY: Clear to auscultation bilaterally with no wheezes or rales. ABDOMEN: Normoactive bowel sounds, soft, nondistended, mild tenderness to palpation in the lower abdominal quadrants. LABORATORY DATA: ESR 14, CRP 0.5. ASSESSMENT AND PLAN: The patient is a 22-year-old female with past medical history of colitis, most consistent with Crohn's colitis presenting with an acute flare. Crohn's colitis The patient is presenting with a history of colitis that was initially felt to be indeterminate colitis when she presented back in 2012 with a cecal perforation. However, the further serologies and colonoscopy with biopsies yield a diagnosis more consistent with Crohn's disease. She was subsequently placed on Remicade, mercaptopurine and had done well with remission of her disease until recently with more recurrent symptoms. In the past, Infectious Disease workup was negative with labs showing antibodies to Remicade at a low level, but the antibodies had escalated to the point where the infusion of infliximab was ineffective. She was subsequently transferred to [facility] with induction dosing this last Wednesday with the administration of approximately 160 mg at that time. Currently, with some problems with increased abdominal pain overnight that has since resolved, however, she continues to have bloody bowel movements consistent with Crohn's colitis exacerbation. RECOMMENDATIONS: 1. Continue Florastor probiotic twice daily. 2. Would continue Delzicol and mercaptopurine at the current dose for maintenance therapy of Crohn's disease. 3. Would continue Humira with induction dosing and administration of 80 mg in approximately 1 week. 4. Can continue with hyoscyamine as needed, although would have a low threshold to discontinue given ineffective nature in the past. 5. Advance diet as tolerated. MTDD
[2017-11-21] MEDS: MERCAPTOPURINE 50 MG PO SCH (21:33)
[2017-11-21] MEDS: Enoxaparin Sodium 30 MG/0.3 ML SYRINGE SC SCH (21:47)
[2017-11-22] MEDS: Sodium Chloride 0.9% 1,000 ML IV SCH ×2 (02:20→17:03)
[2017-11-22] MEDS: traMADol HCl 50 MG TAB PO PRN ×4 (03:06→20:51)
[2017-11-22] MEDS: Saccharomyces boulardii 250 MG CAP PO SCH ×2 (08:24→20:51)
[2017-11-22] MEDS: Mesalamine DR 400 mg Capsule PO SCH ×2 (08:25→14:55)
--- NOTE | 2017-11-22 17:27 | PDOC.PN ---
- Subjective Encounter Start Date: 11/22/17 Encounter Start Time: 17:26 Patient seen and examined. No new complaints. No overnight events - Objective MAR Reviewed: Yes Vital Signs & Weight: Vital Signs (12 hours) Temp Pulse Resp BP Pulse Ox 11/22/17 09:00 97.8 F 50 L 16 99/71 100 11/22/17 08:00 97.8 F 53 L 12 Weight Admit Weight 128 lb Weight 128 lb I&O: 11/21/17 11/22/17 11/23/17 06:59 06:59 06:59 Intake Total 2270 2170 Balance 2270 2170 Result Diagrams: 11/20/17 05:17 11/20/17 05:17 Phys Exam - Physical Examination Constitutional: NAD HEENT: PERRLA Neck: no JVD Respiratory: no wheezing Cardiovascular: no significant murmur mild tenderness Musculoskeletal: pulses present Neurological: moves all 4 limbs Psychiatric: A&O x 3 Dx/Plan (1) Diarrhea Code(s): R19.7 - DIARRHEA, UNSPECIFIED Status: Acute (2) Exacerbation of ulcerative colitis Code(s): K51.90 - ULCERATIVE COLITIS, UNSPECIFIED, WITHOUT COMPLICATIONS Status: Acute (3) Anemia in chronic illness Code(s): D63.8 - ANEMIA IN OTHER CHRONIC DISEASES CLASSIFIED ELSEWHERE Status : Chronic - Plan * f/u gi plan * continue current rx
[2017-11-22] MEDS: Enoxaparin Sodium 30 MG/0.3 ML SYRINGE SC SCH (20:49)
[2017-11-22] MEDS: MERCAPTOPURINE 50 MG PO SCH (20:50)
[2017-11-22] MEDS: diphenhydrAMINE 25 MG CAP PO PRN (20:51)
--- NOTE | 2017-11-22 23:08 | PRG ---
DATE OF SERVICE: 11/22/2017 SUBJECTIVE: Ms. Jama states that she had a bad night couple nights ago and was given Levsin, but t his made her feel like she could not go to the bathroom and could not void, so it was stopped. Appar ently, that was started by the hospitalist, though orders were under my name, but I was not here over the weekend and Dr. Aviles did not start it. She states that today she still had 7-8 bowel movements and some cramping, but saw less blood. PHYSICAL EXAMINATION: VITAL SIGNS: Temperature is 97.8, pulse 50, blood pressure is 99/71. HEENT: Oropharynx without rash or lesions. LUNGS: Clear. HEART: Regular rate and rhythm. ABDOMEN: Soft, nontender. LABORATORY STUDIES: Blood work, none today. C-reactive protein had dropped from 2.51 to less than 0 .5 from 11/11/2017 to 11/20/2017. Clostridium difficile was negative when checked over the weekend. Sed rate was 14, it had been 60s and 80s back in 2012 when she was diagnosed. ASSESSMENT: Left-sided colitis, severe to 60 cm. This is hospital day 11. Maybe we are starting to see some decreased bleeding. C-reactive protein has improved. She has been on Solu-Medrol 40 q.8 h ours. for 5 days, for the first 6 days she was on 20 q.8 hours. Delzicol was added over the weekend. She feels this makes her cramp and had more bloating. She does not like the Levsin or Bentyl so sh e has not been taking it. She takes the Ultram typically for discomfort. PLAN: We will stop the Delzicol to see if this makes her feel better. We will re-evaluate tomorrow. If we are not seeing some significant improvement, we will plan for repeat endoscopy.
[2017-11-23] MEDS: traMADol HCl 50 MG TAB PO PRN ×4 (02:50→21:48)
[2017-11-23] MEDS: diphenhydrAMINE 25 MG CAP PO PRN ×2 (02:53→21:50)
[2017-11-23 07:41] LABS: #Eosinphils 0.1 thou/uL (0.0-0.7); #Lymphocytes 1.8 thou/uL (1.20-3.40); #Monocytes 1.6 thou/uL (0.11-0.59); %Basophils 0.2 % (0.0-1.0); %Eosinophils 0.3 % (0.0-10.0); %Lymphocytes 10.8 % (21.0-51.0); %Monocytes 9.7 % (0.0-10.0); %Neutrophils 78.9 % (42.0-75.0); Hemoglobin 12.1 g/dL (12.0-16.0); Mean Corpuscular HGB CONC 32.2 g/dL (32.0-36.0); Mean Corpuscular Hemoglobin 31.3 pg (27.0-31.0); Mean Corpuscular Volume 97.5 fl (81.0-99.0); Platelet Count 447 thou/uL (130-400); RBC Distribution Width 11.7 % (11.5-14.5); Red Blood Cell (RBC) Count 3.85 mill/uL (4.20-5.40); White Blood Cell (WBC) Count 16.5 thou/uL (4.8-10.8)
[2017-11-23] MEDS: Sodium Chloride 0.9% 1,000 ML IV SCH (09:31)
[2017-11-23] MEDS: Saccharomyces boulardii 250 MG CAP PO SCH ×2 (09:31→21:47)
--- NOTE | 2017-11-23 15:46 | PRG ---
DATE OF SERVICE: 11/23/2017 SUBJECTIVE: Ms. Maciel is feeling better. Pain with eating today. Bowel movements a little bit le ss bloody today. OBJECTIVE: VITAL SIGNS: Temperature 98, pulse 58, respirations 16 and blood pressure 109/72. ABDOMEN: Soft and nontender. LUNGS: Clear. HEART: Regular rate and rhythm without clicks or murmurs. LABORATORY STUDIES: White count 16.5, hemoglobin 12 and platelet count 447 and decreased. ASSESSMENT: Crohn disease, status post transition from [facility] to [email or web address] She had her first dose a bout 11 days ago; next dose will be next Wednesday in 7 days. PLAN: We will try just her back to oral steroids and see if we can get out of the hospital tomorrow.
--- NOTE | 2017-11-23 16:06 | PDOC.PN ---
- Subjective Encounter Start Date: 11/23/17 Encounter Start Time: 16:04 Patient seen and examined. No new complaints. No overnight events - Objective MAR Reviewed: Yes Vital Signs & Weight: Vital Signs (12 hours) Temp Pulse Resp BP Pulse Ox 11/23/17 08:00 98.0 F 58 L 16 11/23/17 07:05 98.0 F 58 L 16 109/72 100 Weight Admit Weight 128 lb Weight 128 lb I&O: 11/22/17 11/23/17 11/24/17 06:59 06:59 06:59 Intake Total 2170 2172 Balance 2170 2172 Result Diagrams: 11/23/17 07:34 11/20/17 05:17 Phys Exam - Physical Examination Constitutional: NAD HEENT: PERRLA Neck: no JVD Respiratory: no wheezing Cardiovascular: no significant murmur Gastrointestinal: soft Musculoskeletal: pulses present Neurological: moves all 4 limbs Psychiatric: A&O x 3 Dx/Plan (1) Diarrhea Code(s): R19.7 - DIARRHEA, UNSPECIFIED Status: Acute (2) Anemia in chronic illness Code(s): D63.8 - ANEMIA IN OTHER CHRONIC DISEASES CLASSIFIED ELSEWHERE Status : Chronic (3) Acute Crohn's disease Code(s): K50.90 - CROHN'S DISEASE, UNSPECIFIED, WITHOUT COMPLICATIONS Status: Acute - Plan * trial of steroids * f/u gi plan
[2017-11-23] MEDS: MERCAPTOPURINE 50 MG PO SCH (21:49)
[2017-11-23] MEDS: Enoxaparin Sodium 30 MG/0.3 ML SYRINGE SC SCH (21:49)
[2017-11-24] MEDS ORDERED: predniSONE 20 MG TAB PO SCH ×2 (07:00→08:00)
[2017-11-24] MEDS: Saccharomyces boulardii 250 MG CAP PO SCH ×2 (08:23→20:02)
[2017-11-24] MEDS: traMADol HCl 50 MG TAB PO PRN ×2 (10:33→21:42)
--- NOTE | 2017-11-24 14:01 | PRG ---
DATE OF SERVICE: 11/24/2017 Ms. Jama was switched to oral prednisone today. Her IV Solu-Medrol was stopped yesterday. She sta jose that she felt really weak and kind of tired after that was stopped and she had some bleeding, a l ittle bit more this morning than she had yesterday. She is a little bit fearful that things are wors ening. PHYSICAL EXAMINATION: VITAL SIGNS: Temperature is 98. She has been afebrile, pulse 92, blood pressure 105/69. ABDOMEN: Soft, nontender. HEENT: Oropharynx without lesions. LABORATORY DATA: No labs today. ASSESSMENT: Crohn's colitis, previous surgery, previous therapy with Remicade, which became ineffect analy as outlined in previous notes. She was started on Humira, which she had her first shots of about 9 days ago. She has had a drop in sed rate, a stable hemoglobin. We have switched her to oral pred nisone. We will check labs tomorrow and if she remains stable, plan on discharge tomorrow on a slow oral prednisone taper. She will follow up in the office next week with repeat Remicade injections.
--- NOTE | 2017-11-24 14:45 | PDOC.PN ---
- Subjective Encounter Start Date: 11/24/17 Encounter Start Time: 07:50 -: old records requested/rev Pt seen and examined, chart reviewed in its entirety. Alba fulton my first visit with this patient. Admitted for acute crohn's flare. Started on po steroids today, pt seen by Dr Mohr earlier. Plan to continue current management, and if improved discharg ein AM, no further changes today No F/C, no N/V/d/C, pain ok, no acute events. 10 point ROS performed and neg for all systems except as per HPI - Objective MAR Reviewed: Yes Vital Signs & Weight: Vital Signs (12 hours) Temp Pulse Resp BP Pulse Ox 11/24/17 08:00 98.4 F 72 14 11/24/17 07:15 98.4 F 72 14 105/69 99 Weight Admit Weight 128 lb Weight 128 lb I&O: 11/23/17 11/24/17 11/25/17 06:59 06:59 06:59 Intake Total 2172 1440 Balance 2172 1440 Result Diagrams: 11/23/17 07:34 11/20/17 05:17 Radiology Reviewed by me: Yes EKG Reviewed by me: Yes Phys Exam - Physical Examination Constitutional: NAD HEENT: PERRLA, moist MMs, sclera anicteric, oral pharynx no lesions Neck: no nodes, no JVD, supple, full ROM Respiratory: no wheezing, no rales, no rhonchi, clear to auscultation bilateral Cardiovascular: RRR, no significant murmur, no rub Gastrointestinal: soft, non-tender, no distention, positive bowel sounds Musculoskeletal: no edema, pulses present Neurological: non-focal, normal sensation, moves all 4 limbs Lymphatic: no nodes Psychiatric: normal affect, A&O x 3 Skin: no rash, normal turgor, cap refill <2 seconds Dx/Plan (1) Acute Crohn's disease Code(s): K50.90 - CROHN'S DISEASE, UNSPECIFIED, WITHOUT COMPLICATIONS Status: Acute Qualifiers: Digestive disease complication type: other complication Qualified Code(s): K50.918 - Crohn's disease, unspecified, with other complication (2) Diarrhea Code(s): R19.7 - DIARRHEA, UNSPECIFIED Status: Chronic Qualifiers: Diarrhea type: due to malabsorption Qualified Code(s): K90.9 - Intestinal malabsorption, unspecified; R19.7 - Diarrhea, unspecified; R19.7 - Diarrhea, unspecified (3) Exacerbation of ulcerative colitis Code(s): K51.90 - ULCERATIVE COLITIS, UNSPECIFIED, WITHOUT COMPLICATIONS Status: Acute Qualifiers: Digestive disease complication type: with rectal bleeding Qualified Code(s) : K51.911 - Ulcerative colitis, unspecified with rectal bleeding (4) Anemia in chronic illness Code(s): D63.8 - ANEMIA IN OTHER CHRONIC DISEASES CLASSIFIED ELSEWHERE Status : Chronic - Plan cont current plan of care, out of bed/ambulate * .
[2017-11-24] MEDS: Enoxaparin Sodium 30 MG/0.3 ML SYRINGE SC SCH (20:03)
[2017-11-24] MEDS: MERCAPTOPURINE 50 MG PO SCH (20:08)
[2017-11-25 05:49] LABS: #Eosinphils 0.2 thou/uL (0.0-0.7); #Lymphocytes 4.3 thou/uL (1.20-3.40); #Monocytes 2.2 thou/uL (0.11-0.59); #Neutrophils 8.5 thou/uL (1.40-6.50); %Basophils 0.2 % (0.0-1.0); %Eosinophils 1.6 % (0.0-10.0); %Monocytes 14.2 % (0.0-10.0); %Neutrophils 55.9 % (42.0-75.0); Hemoglobin 12.6 g/dL (12.0-16.0); Mean Corpuscular HGB CONC 32.2 g/dL (32.0-36.0); Mean Corpuscular Hemoglobin 30.9 pg (27.0-31.0); Mean Platelet Volume 6.5 fL (7.4-10.4); Platelet Count 411 thou/uL (130-400); RBC Distribution Width 11.6 % (11.5-14.5); Red Blood Cell (RBC) Count 4.09 mill/uL (4.20-5.40); White Blood Cell (WBC) Count 15.2 thou/uL (4.8-10.8)
[2017-11-25] MEDS: traMADol HCl 50 MG TAB PO PRN ×3 (06:24→18:14)
[2017-11-25] MEDS ORDERED: predniSONE 20 MG TAB PO SCH (08:45)
[2017-11-25] MEDS: Saccharomyces boulardii 250 MG CAP PO SCH ×2 (09:12→20:06)
--- NOTE | 2017-11-25 11:29 | PDOC.PN ---
- Subjective Encounter Start Date: 11/25/17 Encounter Start Time: 08:40 Pt seen and exmained. No prednisone this morning as pt was expected to go home , reordered. NO F/c, Temp current 99.5. No N/V, + diarrhea with dark blood clots. abd cramping, no tenderness, thuy crackers, chicken, goldfish snacks, fluids Pt doesnt feel much better at this point, no CP, no SOB 10 point ROS performed and neg for all systems except as above - Objective Resuscitation Status: full MAR Reviewed: Yes Vital Signs & Weight: Vital Signs (12 hours) Temp Pulse Resp BP Pulse Ox 11/25/17 07:30 99.8 F H 88 16 99 11/25/17 07:20 99.8 F H 88 16 105/65 99 11/25/17 05:29 99.5 F Weight Admit Weight 128 lb Weight 128 lb I&O: 11/24/17 11/25/17 11/26/17 06:59 06:59 06:59 Intake Total 1440 400 Balance 1440 400 Result Diagrams: 11/25/17 05:25 11/20/17 05:17 Phys Exam - Physical Examination Constitutional: NAD HEENT: PERRLA, moist MMs, sclera anicteric, oral pharynx no lesions Neck: no nodes, no JVD, supple, full ROM Respiratory: no wheezing, no rales, no rhonchi, clear to auscultation bilateral Cardiovascular: RRR, no significant murmur, no rub Gastrointestinal: soft, no distention, positive bowel sounds mildly tender to LLQ Musculoskeletal: no edema, pulses present Neurological: non-focal, normal sensation, moves all 4 limbs Lymphatic: no nodes Psychiatric: normal affect, A&O x 3 Skin: no rash, normal turgor, cap refill <2 seconds Dx/Plan (1) Acute Crohn's disease Code(s): K50.90 - CROHN'S DISEASE, UNSPECIFIED, WITHOUT COMPLICATIONS Status: Acute Qualifiers: Digestive disease complication type: other complication Qualified Code(s): K50.918 - Crohn's disease, unspecified, with other complication Comment: humira repeat dose on 11/29/2017 (2) Diarrhea Code(s): R19.7 - DIARRHEA, UNSPECIFIED Status: Chronic Qualifiers: Diarrhea type: due to malabsorption Qualified Code(s): K90.9 - Intestinal malabsorption, unspecified; R19.7 - Diarrhea, unspecified; R19.7 - Diarrhea, unspecified (3) Exacerbation of ulcerative colitis Code(s): K51.90 - ULCERATIVE COLITIS, UNSPECIFIED, WITHOUT COMPLICATIONS Status: Acute Qualifiers: Digestive disease complication type: with rectal bleeding Qualified Code(s) : K51.911 - Ulcerative colitis, unspecified with rectal bleeding (4) Anemia in chronic illness Code(s): D63.8 - ANEMIA IN OTHER CHRONIC DISEASES CLASSIFIED ELSEWHERE Status : Chronic - Plan cont current plan of care, out of bed/ambulate * . continue prednisone po, ESR and CRP negative as of 11/20. Follow up on GI recs
--- NOTE | 2017-11-25 17:32 | PRG ---
DATE OF SERVICE: 11/25/2017 SUBJECTIVE: Ms. Jama states she has been feeling worse since her steroids stopped. OBJECTIVE: VITAL SIGNS: She complains of low-grade temperature up to 99.8, pulse 88, blood pressure 105/65. LUNGS: Clear. ABDOMEN: Soft, nontender. LABORATORY STUDIES: White count 15.2, hemoglobin 12.6, platelet count of 411, this is down from a pl atelet count of 591 on admission. ASSESSMENT: Colitis, distal 60 cm, severe. She had been on IV steroids for about 11 days. When she was switched to oral 2 days ago, she seems to have bumped her symptoms a little bit since that time; however, hemoglobin staying stable and platelet count is dropping. She states she feels worse. PLAN: We will reevaluate sigmoidoscopy tomorrow. If this is stable and not worsening, we will disch arge her home on her steroids with plans for Humira again this coming Wednesday in 4 days.
[2017-11-25] MEDS: MERCAPTOPURINE 50 MG PO SCH (20:07)
[2017-11-25] MEDS: Enoxaparin Sodium 30 MG/0.3 ML SYRINGE SC SCH (20:08)
[2017-11-26] MEDS: traMADol HCl 50 MG TAB PO PRN ×3 (00:02→14:17)
[2017-11-26 07:46] VITALS: BP 118/87
[2017-11-26] MEDS ORDERED: predniSONE 20 MG TAB PO SCH (08:00)
[2017-11-26] MEDS ORDERED: Promethazine HCl 25 MG/ML VIAL IM PRN (12:41)
[2017-11-26] MEDS ORDERED: Ondansetron HCl/PF 4 MG/2 ML Vial IVP PRN (12:41)
[2017-11-26] MEDS ORDERED: Promethazine HCl 25 MG/ML VIAL SLOW IVP PRN (12:41)
[2017-11-26] MEDS ORDERED: Lidocaine 1% PF 5 ML VIAL ONE (13:19)
[2017-11-26] MEDS ORDERED: PROPOFOL 200 MG/20 ML VIAL ONE (13:19)
[2017-11-26] MEDS: Saccharomyces boulardii 250 MG CAP PO SCH (14:16)
--- NOTE | 2017-11-26 16:16 | DIS ---
DATE OF ADMISSION: 11/11/2017 DATE OF DISCHARGE: 11/26/2017 DISCHARGE DIAGNOSES: 1. Acute flare of Crohn disease. 2. Chronic Crohn disease. 3. Hematochezia. 4. Iron deficiency anemia due to chronic slow gastrointestinal blood loss. 5. Abdominal pain, intractable. 6. Chronic diarrhea. CONSULTATIONS: 1. Gastroenterology, initially seen by Dr. Dank Alvarez and taken over by Dr. Parker Mohr, on 0 11/16/2017. 2. The patient was seen in cross cover by Dr. Aviles, on 11/21/2017. PROCEDURES PERFORMED: 1. On 11/13/2017, lower endoscopy revealing diffuse colitis from the anus to 65 cm consistent with u lcerative colitis, biopsies were taken. 2. Repeat colonoscopy on 11/26/2017, with minor changes. HISTORY AND PHYSICAL: Ms. Jama is a 22-year-old female with known Crohn disease who presented to [facility] administrative assistant coordinator on 11/11/2017. She was obviously having acute Crohn flare, so was directly adm itted to the hospital and the patient was seen and admitted by Dr. Guerrero. HOSPITAL COURSE: The patient was seen and examined. The patient was started on IV Solu-Medrol by GI , but this dose was refused due to the fact it would probably keep her up at night and so steroids we re started the following morning. She was waiting for approval for Humira as she has been on Remicad e in the past, but had failed therapy. Overnight on 11/11-11/12, the patient did fairly well. Pain was tolerable with oral pain medications . On 11/12, the patient was taken to OR by Dr. Moreno. She had hematochezia and diarrhea, but no feve rs and belly was relatively stable. She was started on the IV steroids that morning. Gastroenterology was consulted and saw her the night of admission. They followed along and by 11/13, decided to take her for endoscopy. She was found to have diffuse colitis consistent with ulcerative colitis. She was continued on IV steroids. By 11/14, the patient was seen having blood-tinged stoo ls, abdominal cramping, and poor p.o. intake, did not really improve on the steroids. She was approp riate for Humira, so this was ordered with the plans to give it to her on the first week day coming u p. She was continued on mercaptopurine. On 11/15/2017, the patient was continued on the same management and was slowly improving, certainly n ot getting worse. On 11/16, Dr. Mohr took over from gastroenterology standpoint and the patient was given an inductio n dose of Humira and tolerated fine. On 11/17-11/23, the patient slowly improved. Sed rate and C-reactive protein both went from abnormal to normal. Her symptoms were improving and her diarrhea improved. She had less rectal bleeding. On 11/24, I took the case over; the patient had a little more pain, GI kept overnight to continue tra nsition to oral steroids. She had another almost a week to get before she was due for her next dose of Humira. On 11/25, she was still having diffuse pain and occasional blood-tinged bowel movements. Plans were made to prep her and take her for a repeat endoscopy on 11/26. By today, 11/26, the patient was feeling fairly stable. Repeat endoscopy showed no new lesions, but did show improvement. She was started on hydrocortisone per rectum and continued on p.o. prednisone. She was considered ready for discharge by GI and was sent home for outpatient followup. The patien t was seen and examined on the day of discharge. Discharge plan and disposition was discussed with t he patient and her mother face to face at the bedside. DISCHARGE MEDICATIONS: 1. Mercaptopurine 50 mg p.o. daily. 2. Prednisone 40 mg p.o. q.a.m. 3. Florastor 250 mg p.o. b.i.d. 4. Hydrocortisone 100 mg per rectum at bedtime. 5. Doxycycline 100 mg p.o. b.i.d. for acne. She gets her next dose of Humira on 11/29/[address] Mohr' office. FOLLOWUP APPOINTMENTS: 1. Primary care physician who is Dr. Arnold Alicea at [facility] within a week. 2. Dr. Mohr on 11/29/2017, for Humira. DISCHARGE DIET: As tolerated. DISCHARGE ACTIVITY: As tolerated. DISCHARGE CONDITION: Good. DISPOSITION: Being discharged to home via private vehicle with family.
[2017-11-26] MEDS ORDERED: Dextrose 5% in Water 1,000 ML IV PRN (16:27)
[2017-11-26] MEDS ORDERED: Insulin Regular 300 UNITS/3 ML VIAL SC PRN (16:27)
[2017-11-26] MEDS ORDERED: Dextrose 50% Abboject 50 ML SYRINGE IVP PRN (16:27)
[2017-11-26 18:20] VITALS: TEMP 100
--- NOTE | 2017-11-26 23:16 | OP ---
Colitis, inadequate improvement with 10 days of IV steroids, now 3 more days of oral steroids. There has been improvement in C-reactive protein, hemoglobin stable, platelet count has slowly trended mag n; however, clinically she is not improved and pain. PLAN: Sigmoidoscopy to evaluate the status of colitis. POSTOPERATIVE DIAGNOSES: Severe colitis from about 70-80 cm down to the rectum. In the sigmoid, the re is area with some significant ulceration or erosion, otherwise appears a pretty normal transverse colon with formed stool in the proximal transverse colon. Biopsies were taken from the transverse, d escending, sigmoid regions and submitted to pathology. Has to rule out CMV and other possible etiolo gies, although these have been checked previously in the outpatient setting a few weeks ago. RECOMMENDATIONS: We will continue oral steroids. We will add topical steroid rectally. She is due for next Remicade injection of induction on Wednesday. At this time, I do not think there is any impend ing risk of perforation, we will ask her if she wants to try to go home and do these things and then come back to the office on Wednesday for her shot.
--- NOTE | 2017-11-29 11:04 | OP ---
(To replace the previously incompletely dictated note.) DATE OF PROCEDURE: 11/26/2017 PROCEDURE PERFORMED: Flexible sigmoidoscopy. PREPROCEDURE DIAGNOSES: Ulcerative colitis with adequate improvement, 10 days of IV steroids and 3 m ore days of oral steroids. There has been fluctuating level of C-reactive protein, stable hemoglobin and platelet count has slowly trended down. However, clinically the patient is not improved and has persistent pain. The point of endoscopy is to evaluate response to therapy and help plan possible n eed for surgical intervention. POSTPROCEDURE DIAGNOSES: Severe colitis from about 70-80 cm down to the rectum through the sigmoid, there were significant ulcerations and erosions. The transverse colon was normal and there was forme d stool in the proximal transverse colon, ascending colon was not visualized. Biopsies were taken to rule out CMV. RECOMMENDATIONS: Continue oral steroids and topical steroids rectally. Remicade infusion next y, we will increase dose. We will plan on sending her to home if she is stable overnight and coming in for a shot next week. PROCEDURE IN DETAIL: After the patient was informed of the risks, benefits, possible complications o f endoscopy including perforation, bleeding, reactions to medication and aspiration, informed consent was obtained. The patient brought to endoscopy suite where she was sedated in gradual fashion. Onc e she was comfortable, rectal exam was performed, which was normal. The endoscope was advanced throu gh the anal canal through the colon to the proximal transverse colon with formed stools encountered. The transverse colon appeared normal with no overt colitis. Descending colon was fairly normal, bu t 70-80 cm from the anorectal verge all the way down to the rectum, there was pancolitis with ulcerat ions, erosions and submucosal edema and hemorrhage. There were no deep ulcers. These were mainly up arnold like. The colon was very friable and bleeding. There was no evidence of perianal fistulas, per ianal fissures, strictures or external disease. Retroflexion views were not performed. Biopsies wer e taken for the above-noted studies, and the scope was removed. The patient tolerated the procedure well with no complications.
== END 2017-11-26 18:05 | disposition home or self-care (01) | DRG 386 ==
LOC: ONC 17:17
PROVIDERS: ADMIT Internal Medicine; ATTEND Internal Medicine
PROC: 0DBG8ZX Excision of Left Large Intestine, Via Natural or Artificial Opening Endoscopic, Diagnostic (ICD-10-PCS; principal; 2017-11-13)
PROC: 0DBN8ZX Excision of Sigmoid Colon, Via Natural or Artificial Opening Endoscopic, Diagnostic (ICD-10-PCS; 2017-11-26)
PROC: 0DBL8ZX Excision of Transverse Colon, Via Natural or Artificial Opening Endoscopic, Diagnostic (ICD-10-PCS; 2017-11-26)
DX: K50.111 Crohn's disease of large intestine with rectal bleeding (principal); K90.9 Intestinal malabsorption, unspecified; D69.6 Thrombocytopenia, unspecified; K51.511 Left sided colitis with rectal bleeding; D50.0 Iron deficiency anemia secondary to blood loss (chronic); F41.9 Anxiety disorder, unspecified; J45.909 Unspecified asthma, uncomplicated; Z83.2 Family history of diseases of the blood and blood-forming organs and certain disorders involving the immune mechanism; Z90.49 Acquired absence of other specified parts of digestive tract; D63.8 Anemia in other chronic diseases classified elsewhere; K12.1 Other forms of stomatitis
CPT/HCPCS: 36415; 80048; 80053; 81001; 83735; 84100; 85007; 85025; 85027; 85652; 86140; 86480; 87045; 87046; 87324; 87328; 87329; 87449; 87804; 87899; 88305; A4216; J1650; J2001; J2704; J2920; J7050; J7506

== ENCOUNTER 2017-12-06 11:05 | Inpatient (IN) | payer OTHER ==
[2017-12-06] MEDS ORDERED: Acetaminophen 325 MG TAB PO PRN (11:24)
[2017-12-06] MEDS ORDERED: Ondansetron ODT 4 MG TAB PO PRN (11:24)
[2017-12-06] MEDS ORDERED: Calcium Carbonate 500 MG ChewTAB PO PRN (11:24)
[2017-12-06] MEDS ORDERED: Ondansetron HCl/PF 4 MG/2 ML Vial IVP PRN (11:24)
[2017-12-06] MEDS ORDERED: Sodium Chloride 0.9% 1,000 ML IV SCH (11:30)
[2017-12-06] MEDS ORDERED: Famotidine/PF 20 mg/2ml Vial SLOW IVP SCH (11:30)
[2017-12-06] MEDS ORDERED: Sodium Chloride 0.9% 10 ML ONE ×2 (11:33→14:33)
[2017-12-06 12:11] LABS: #Eosinphils 0.1 thou/uL (0.0-0.7); #Lymphocytes 1.2 thou/uL (1.20-3.40); #Monocytes 0.7 thou/uL (0.11-0.59); #Neutrophils 7.1 thou/uL (1.40-6.50); %Basophils 0.4 % (0.0-1.0); %Eosinophils 0.7 % (0.0-10.0); %Lymphocytes 12.9 % (21.0-51.0); %Monocytes 7.3 % (0.0-10.0); %Neutrophils 78.6 % (42.0-75.0); Hemoglobin 12.8 g/dL (12.0-16.0); Mean Corpuscular HGB CONC 32.4 g/dL (32.0-36.0); Mean Corpuscular Hemoglobin 31.2 pg (27.0-31.0); Mean Corpuscular Volume 96.6 fl (81.0-99.0); Mean Platelet Volume 5.6 fL (7.4-10.4); Platelet Count 418 thou/uL (130-400); RBC Distribution Width 12.1 % (11.5-14.5); Red Blood Cell (RBC) Count 4.08 mill/uL (4.20-5.40)
[2017-12-06 12:12] VITALS: BMI 22.6
[2017-12-06 12:23] LABS: Lactic Acid 0.9 mmol/L (0.5-2.2)
[2017-12-06] MEDS: Sodium Chloride 0.9% 1,000 ML IV SCH ×3 (12:24→22:42)
[2017-12-06 12:29] LABS: ALT (SGPT) 13 U/L (8-55); AST (SGOT) 9 U/L (5-34); Albumin 3.4 g/dL (3.5-5.0); Alkaline Phosphatase 74 U/L (40-150); Anion Gap 11 mmol/L (10-20); BUN (Urea Nitrogen) 5 mg/dL (7.0-18.7); Bilirubin, Total 0.7 mg/dL (0.2-1.2); Calc. Creatinine Clearance 110 mL/min (70-130); Calcium 9.3 mg/dL (7.8-10.44); Carbon Dioxide 28 mmol/L (22-29); Chloride 100 mmol/L (98-107); Estimated GFR-MDRD Greater than 90; Globulin 4.2 g/dL (2.4-3.5); Glucose 109 mg/dL (70-105); Magnesium 1.7 mg/dL (1.6-2.6); Phosphorus 2.5 mg/dL (2.3-4.7); Potassium 3.4 mmol/L (3.5-5.1); Protein, Total 7.6 g/dL (6.0-8.3); Sodium 136 mmol/L (136-145)
[2017-12-06] MEDS ORDERED: Fentanyl 100 MCG/2 ML VIAL SLOW IVP PRN (13:31)
[2017-12-06 13:51] LABS: Bilirubin Negative (Negative); Blood, Urine Moderate (Negative); Clarity CLEAR (Clear); Glucose, Urine (Dipstick) Negative (Negative); Leukocyte Negative (Negative); Nitrite Negative (Negative); Protein, Urine (Dipstick) Negative (Neg-Trace); Specific Gravity, Urine 1.006 (1.002-1.036); Urobilinogen 0.2 mg/dL (0.2-1.0); pH, Urine 7.5 (5.0-9.0)
[2017-12-06] MEDS: metroNIDAZOLE 500 MG in Premix Bag 1 BAG IVPB SCH ×2 (13:51→22:37)
[2017-12-06] MEDS ORDERED: cefTRIAXone\\ROCEPHIN 1 GM, Syringe 0.4 ML in Sterile Water 9.6 ML SLOW IVP SCH (14:00)
[2017-12-06] MEDS ORDERED: cefTRIAXone\\ROCEPHIN 1 GM in Sodium Chloride 0.9% 100 ML IVPB SCH (14:00)
[2017-12-06 14:05] LABS: Bacteria/HPF Rare-Few HPF (None Seen); Hyaline Casts/LPF NONE SEEN LPF (0-3 Hyaline); Squamous Epithelial 0-3 HPF (0-3); WBC/HPF 0-3 HPF (0-3)
[2017-12-06] MEDS: traMADol HCl 50 MG TAB PO PRN ×2 (14:43→20:31)
[2017-12-06 15:04] LABS: Pregnancy Test - Urine (BHCG) Negative (Negative); Pregu Control Background? CLEAR/WHITE (CLR/WHITE); Pregu Control Bar Appear? YES (CONTROL BAR); Specific Gravity 1.006 (1.002-1.036)
[2017-12-06] MEDS ORDERED: Cepastat Lozenges 1 LOZ PO PRN (15:40)
[2017-12-06] MEDS ORDERED: Diabetic Tussin 200 MG/10 ML UDCUP PO PRN (15:40)
[2017-12-06] MEDS ORDERED: Famotidine 20 MG TAB PO PRN (15:45)
--- NOTE | 2017-12-06 16:00 | HP ---
DATE OF ADMISSION: 12/06/2017 PRIMARY BROKERAGE COORDINATOR: Dr. Mohr. PRIMARY CARE PHYSICIAN: Dr. Arnold Alicea at [facility]. CHIEF COMPLAINT: Direct admit from Dr. Mohr' office for Crohn's exacerbation. Patient had bloody diarrhea. HISTORY OF PRESENT ILLNESS: The patient is a 22-year-old white female with inflammatory bowel diseas e with recent hospitalization at this facility, presented to the emergency room with above complaints . The patient was discharged on 11/26/2017. She was started on Humira per payroll coordinator. Post-discharge, her symptoms continued to worsen. She was seen by Dr. Mohr today and was sent to [facility] for hospital admission. She continued to have on and off abdominal discomfort with blood y diarrhea. She has not been eating well due to abdominal discomfort. She denied any nausea, vomiti ng; however. Abdominal pain was more or less generalized, moderate in intensity, aggravated by food. She currently takes prednisone as well as mercaptopurine every day. PAST MEDICAL HISTORY: 1. Inflammatory bowel disease. Patient had a recent flare of Crohn's disease. 2. Chronic diarrhea. PAST SURGICAL HISTORY: 1. Recent colonoscopy. 2. Right hemicolectomy for ulcerative colitis. ALLERGIES: CODEINE. CURRENT HOME MEDICATIONS: As discussed above. SOCIAL HISTORY: Patient currently lives at home. No tobacco, alcohol or drug use. FAMILY HISTORY: Positive for Crohn's disease and ulcerative colitis in mother and father. REVIEW OF SYSTEMS: The following complete review of systems was negative, unless otherwise mentioned in the HPI or below: Constitutional: Weight loss or gain, ability to conduct usual activities. Skin: Rash, itching. Eyes: Double vision, pain. ENT/Mouth: Nose bleeding, neck stiffness, pain, tenderness. Cardiovascular: Palpitations, dyspnea on exertion, orthopnea. Respiratory: Shortness of breath, wheezing, cough, hemoptysis, fever or night sweats. Gastrointestinal: Poor appetite, abdominal pain, heartburn, nausea, vomiting, constipation, or diarr hea. Genitourinary: Urgency, frequency, dysuria, nocturia. Musculoskeletal: Pain, swelling. Neurologic/Psychiatric: Anxiety, depression. Allergy/Immunologic: Skin rash, bleeding tendency. PHYSICAL EXAMINATION: VITAL SIGNS: Temperature 98.3, respiration of 18, pulse rate of 82, blood pressure 111/76 with O2 sa turation 96% on room air. GENERAL: A 22-year-old female in mild distress due to abdominal discomfort. HEENT: Head is atraumatic, normocephalic. Sclerae are anicteric. Moist mucous membranes. No oral lesion. NECK: Supple, no JVD appreciated. No carotid bruit. LUNGS: Clear to auscultation bilaterally. HEART: S1, S2 present. Regular rate and rhythm. No murmur, rubs, or gallops appreciated. ABDOMEN: Soft, mild generalized tenderness, without any rebound, guarding, no costovertebral angle t enderness. EXTREMITIES: No edema or calf tenderness. NEUROLOGIC: Grossly nonfocal, moves all four extremities. PSYCHIATRIC: Alert, awake, oriented x3. SKIN: Warm and dry. LYMPH NODES: No palpable lymph nodes in the neck. PERIPHERAL VASCULAR: Radial pulses palpable bilaterally. MUSCULOSKELETAL: No joint swelling or tenderness. LABORATORY DATA: CBC showed WBC 9 with hemoglobin of 12.8, hematocrit 39.4, platelet 418. Chemistri es showed sodium 136, potassium 3.4, chloride 100, bicarbonate 28, BUN of 5, creatinine 0.66, CRP of 8.2. Urine test was negative. Urinalysis was negative. IMPRESSION AND PLAN: 1. Exacerbation of Crohn's disease. 2. Hematochezia secondary to #1. 3. Hypokalemia. 4. Elevated inflammatory markers. 5. Elevated platelets probably secondary to inflammatory process. 6. Chronic diarrhea. PLAN: The patient will be monitored in the medical floor. She has been started on IV fluids, steroi ds and Flagyl. She had generalized itching after Cipro. For this reason, Cipro has been discontinue d. GI has been consulted. We will resume home mercaptopurine. We will continue tramadol p.r.n. for pain. Add fentanyl as needed. Stool workup has been ordered. Repeat labs in a.m. Patient refused oral potassium supplementation. We will repeat basic metabolic profile in a.m. Plan of care was discussed with the patient and the family, they stated understanding.
[2017-12-06] MEDS ORDERED: Potassium Chloride 10 MEQ TAB PO SCH (17:00)
[2017-12-06] MEDS: Saccharomyces boulardii 250 MG CAP PO SCH (20:36)
[2017-12-07] MEDS: traMADol HCl 50 MG TAB PO PRN ×4 (02:46→20:59)
[2017-12-07] MEDS: metroNIDAZOLE 500 MG in Premix Bag 1 BAG IVPB SCH ×3 (06:15→22:08)
--- NOTE | 2017-12-07 06:28 | CON ---
DATE OF CONSULTATION: 12/06/2017 HISTORY OF PRESENT ILLNESS: Ms. Jama is a 22-year-old with inflammatory bowel disease diagnosed in 2012. At that time, she underwent a right hemicolectomy secondary to perforation. It was felt that she probably had Crohn's; however, she had no ileal disease and has mainly had left-sided colitis sin ce that time. In December 2016, she had some mild active colitis in her sigmoid and rectum, but had been maintained for about 5 years on Remicade. She did have to have dose escalation to 10 mg/kg, and ultimately lost the effect and noticed some dirrahea this past Fall. She had antibody to infliximab and moderately low level trough infliximab. It was decided to go ahead and change to Humira as she has had such good response for so long. She did have an infectious workup at that time, negative for TB, CMV and histoplasmosis. She was admitted to the hospital in early November, having multiple stoo ls with blood mucus, 1-2 tablespoons every 20 to 30 minutes, with diffuse lower abdominal pain. She was still taking her mercaptopurine. She did not want to try oral prednisone at that time secondary to acne and weight gain it would cause, but ultimately, she tried that in the outpatient setting befo re being admitted. Her last admission she was here, she had a sigmoidoscopy showing disease to 60 cm , above this colon was clear and actually formed stool was noted in the transverse colon. On , she had a endoscopy that showed chronic active colitis, severe, in the sigmoid colon. After hig h dose steroids, trial of 5-ASA which she did not tolerate, and trial of some Corby enemas which she d id not hold in well. She had a repeat endoscopy on the . She also had her induction doses of Re micade, Humira by that time. On that exam, she had chronic mild active colitis in the transverse col on, chronic mild active colitis splenic flexure and chronic [id number] colitis in the sigmoid colon. There were no signs of infection on those biopsies and CMV, DNA was negative. Ultimately, s he seemed to be improving somewhat, we discharged her home to come to the office for second dose of H umira. She had doses of Humira 80 mg 2 weeks ago and this Wednesday she came in today for her next dose as we are going to place her on 40 mg for 1 week. She has been on higher dose of Remicade. In the office, she was tachycardic to 130 noted she has been having some fever up to 101 at home and the ramon colby was made to be admitted to the hospital. She denies any fever, any chills. Her family notes s he has had some cough. She did have some temperature before she came to the office and that is when her mother gave her Tylenol, which she had no fever in the office, her pulse was high. PAST MEDICAL HISTORY: Includes indeterminate colitis, asthma and anxiety. PAST SURGICAL HISTORY: Right hemicolectomy secondary to perforation. ALLERGIES: CODEINE. MEDICATIONS AT HOME: Humira. She has finished loading of getting 40 mg a week, prednisone 40 mg a d ay, mercaptopurine 50 mg day. SOCIAL HISTORY: Patient lives at home. She is about to get in 40 days. No tobacco, alcohol , or drugs. FAMILY HISTORY: Negative for Crohn's disease, ulcerative colitis, in mother and father. REVIEW OF SYSTEMS: Negative for arthralgias, myalgias, skin rashes, oral ulcers, lesions, or thrush, vaginal candidiasis, mild cough. No shortness of breath or wheezing, no dysuria, frequency, or urge ncy. PHYSICAL EXAMINATION: VITAL SIGNS: Temperature is 98.3 here, respirations 18 with a pulse of 82 on admission, blood pressu re 113/73. She is pale. HEENT: Oropharynx without lesions. There is no thrush. NECK: Supple. LUNGS: Clear. HEART: Regular rate and rhythm without clicks or murmurs. ABDOMEN: Soft and nontender. There is no rebound. There is no guarding. EXTREMITIES: Reveal no clubbing, cyanosis, or edema. SKIN: Without rash or lesions. MEDICATIONS: She has been started on Solu-Medrol 20 IV q.8, Zofran p.r.n., Flagyl 500 IV q.8, she wa s placed on Cipro IV, but had a rash and this was discontinued, mercaptopurine 50, fentanyl p.r.n., P epcid, Tums p.r.n. She was given a liter of bolus when she came here and now is on 125 mL an hour. She is on Florastor as well. Microbiology: Stool for C. diff negative. Stool lactoferrin positive. Campylobacter negative. Polina ga toxin is negative. Rapid parasite screen is negative, Giardia and Cryptosporidia. LABORATORY STUDIES: White count 9, hemoglobin 12, platelets 418 when she was in the hospital, she wa s high as 500. On 11/23, she was 447, and on 11/25, 418, on 11/30, 426. Sed rate on the 11/30 was 2 7. CRP is 8.2, it was 4.2 on the 11/30, is 2.5 on the 11/11 and was 0.87 on 10/25/2017, it was 0.5 o n 11/20/2017. Comprehensive metabolic profile shows potassium of 3.4. Liver function tests were norm al. Phosphorus 2.5, magnesium 1.7, albumin 3.4. ASSESSMENT: 1. Left side colitis, severe, and she has been started on Humira and has had her first maintenance d ose today in the office, so far she is not responding. Infectious etiologies have been ruled out. Ayden enciso will ask pathology tomorrow, send her last biopsies for CMV stains, although the CMV DNA has been n egative. We will talk with inflammatory bowel disease specialist in [place]. She has an appointment within a couple of weeks to see if they have any recommendations or opinions on other things we coul d try. It may be that we need to move on to another medication, although she has really only been on 3 weeks of the Humira. At this time, there are no signs of toxic megacolon. 2. Fever. This is likely related to colitis. We sent urine cultures and blood cultures. We will g et a chest x-ray in the morning and x-ray her belly in the morning. 3. We have tried adding 5 ASA, which she has not tolerated, although I do not think they would do mu ch. If her x-ray looks okay tomorrow, we will add a Corby enema. I have discussed with her and her fiance and mother who are at the bedside. In the possibility that she does not improve, she may ultimately need a colectomy. At this point in time, there is no signs that she needs an urgent colectomy.
[2017-12-07] MEDS: Sodium Chloride 0.9% 1,000 ML IV SCH ×2 (07:07→14:28)
[2017-12-07 07:47] LABS: #Lymphocytes 1.5 thou/uL (1.20-3.40); #Monocytes 0.5 thou/uL (0.11-0.59); %Basophils 0.1 % (0.0-1.0); %Eosinophils 0.1 % (0.0-10.0); %Lymphocytes 18.7 % (21.0-51.0); %Neutrophils 75.2 % (42.0-75.0); Hemoglobin 11.2 g/dL (12.0-16.0); Mean Corpuscular HGB CONC 31.9 g/dL (32.0-36.0); Mean Corpuscular Hemoglobin 30.8 pg (27.0-31.0); Mean Corpuscular Volume 96.6 fl (81.0-99.0); Mean Platelet Volume 5.5 fL (7.4-10.4); Platelet Count 378 thou/uL (130-400); RBC Distribution Width 12.2 % (11.5-14.5); Red Blood Cell (RBC) Count 3.63 mill/uL (4.20-5.40)
[2017-12-07 08:11] LABS: ALT (SGPT) 11 U/L (8-55); AST (SGOT) 6 U/L (5-34); Albumin 2.8 g/dL (3.5-5.0); Alkaline Phosphatase 57 U/L (40-150); Anion Gap 9 mmol/L (10-20); BUN (Urea Nitrogen) 6 mg/dL (7.0-18.7); Bilirubin, Total 0.5 mg/dL (0.2-1.2); Calc. Creatinine Clearance 123 mL/min (70-130); Calcium 8.3 mg/dL (7.8-10.44); Carbon Dioxide 28 mmol/L (22-29); Chloride 102 mmol/L (98-107); Estimated GFR-MDRD Greater than 90; Globulin 3.4 g/dL (2.4-3.5); Glucose 117 mg/dL (70-105); Potassium 4.1 mmol/L (3.5-5.1); Protein, Total 6.2 g/dL (6.0-8.3); Sodium 135 mmol/L (136-145)
--- NOTE | 2017-12-07 09:19 | RAD ---
FRONTAL AND LATERAL IMAGING CHEST: DATE: 12/07/17. COMPARISON: 02/09/13. HISTORY: Fever. FINDINGS: There is no pneumothorax, pleural fluid, focal consolidation, or alveolar edema. Heart and mediastin al contours are unremarkable as are the osseous structures. IMPRESSION: No acute findings. POS: [facility]
--- NOTE | 2017-12-07 09:28 | RAD ---
TWO VIEWS ABDOMEN: Date: 12-07-17 Comparison: None. History: Fever, ulcerative colitis. FINDINGS: Upright imaging demonstrates no free intraperitoneal air. The bowel gas pattern appears nonobstructed . There is a bowel suture line in the right upper quadrant. IMPRESSION: No evidence for free intraperitoneal air of small bowel obstruction. POS: [facility]
[2017-12-07] MEDS: Famotidine 20 MG TAB PO SCH ×2 (12:42→20:50)
--- NOTE | 2017-12-07 16:26 | PDOC.PN ---
- Subjective Encounter Start Date: 12/07/17 Encounter Start Time: 14:00 No new complaints. No overnight events - Objective Resuscitation Status: Resuscitation Status FULL:Full Resuscitation MAR Reviewed: Yes Vital Signs & Weight: Vital Signs (12 hours) Temp Pulse Resp BP Pulse Ox 12/07/17 11:43 97.9 F 55 L 18 113/77 12/07/17 09:30 97.9 F 55 L 18 12/07/17 08:00 98.6 F 53 L 18 109/69 99 12/07/17 04:45 97.5 F L 63 16 102/67 97 Weight Admit Weight 116 lb Weight 116 lb I&O: 12/06/17 12/07/17 12/08/17 06:59 06:59 06:59 Intake Total 3905 Output Total 600 Balance 3305 Result Diagrams: 12/07/17 07:30 12/07/17 07:30 Phys Exam - Physical Examination Constitutional: NAD Dx/Plan - Plan DVT proph w/SCDs MPRESSION AND PLAN: 1. Exacerbation of Crohn's disease 2. Hematochezia secondary to #1. 3. Fever prob due to #1 3. Hypokalemia. resolved 4. Elevated inflammatory markers. 5. Elevated platelets probably secondary to inflammatory process. 6. Chronic diarrhea. PLAN: * Cont current meds as below * Further mngt per GI
[2017-12-07] MEDS ORDERED: Adalimumab 40 MG/0.8 ML SYRINGE SC SCH (19:30)
[2017-12-07] MEDS: Enoxaparin Sodium 30 MG/0.3 ML SYRINGE SC SCH (21:42)
[2017-12-07] MEDS: Saccharomyces boulardii 250 MG CAP PO SCH (22:08)
[2017-12-08] MEDS ORDERED: Magnesium 2 GM/NS 0.9% 100 ML 2 GM in Premix Bag 1 BAG IVPB SCH (00:30)
[2017-12-08] MEDS: Sodium Chloride 0.9% 1,000 ML IV SCH ×5 (00:35→21:10)
--- NOTE | 2017-12-08 02:03 | PRG ---
DATE OF SERVICE: 12/07/2017 SUBJECTIVE: Ms. Jama feels a little bit better. No rigors or chills. PHYSICAL EXAMINATION: VITAL SIGNS: Temperature is 100.2 last night at 2200. Today, she has been afebrile, pulse 59, blood pressure 108/69. LUNGS: Clear. HEART: Regular rate and rhythm. ABDOMEN: Nontender. LABORATORY STUDIES: Today, white count 8, hemoglobin was 11.2, platelet count 378. Sodium 135, pota ssium 4.1, electrolytes are normal. Liver function tests normal. Albumin 2.8, protein 6.2. She has a negative UA, negative white blood cells. Microbiology: Blood cultures negative thus far, urine n egative thus far. Stool negative. Chest x-ray was normal. Abdomen x-ray, no toxic megacolon. ASSESSMENT AND PLAN: Severe colitis, left side. Discussed with his IBD specialist in [place] yester day, she has appointment coming up on the . After reviewing the case, he suggested pushing the h igher doses of Humira. She got 40 mg yesterday after finishing her loading dose the week before at 6 0 and 80. We will go and give her another 40 today for a total of 80 this week. We will continue he r IV steroids. We will hold off on the enema. Reviewing her x-ray, she has got a lot of stool in th e right colon, I am going to give her a little bit of MiraLax to see if we can move that along so she does not get a high impaction. We will continue to observe.
[2017-12-08] MEDS: traMADol HCl 50 MG TAB PO PRN ×4 (04:32→21:07)
[2017-12-08] MEDS: metroNIDAZOLE 500 MG in Premix Bag 1 BAG IVPB SCH ×4 (06:29→21:18)
[2017-12-08 06:33] LABS: #Lymphocytes 1.3 thou/uL (1.20-3.40); #Monocytes 0.7 thou/uL (0.11-0.59); #Neutrophils 6.3 thou/uL (1.40-6.50); %Eosinophils 0.3 % (0.0-10.0); %Neutrophils 75.7 % (42.0-75.0); Hemoglobin 10.9 g/dL (12.0-16.0); Mean Corpuscular HGB CONC 32.2 g/dL (32.0-36.0); Mean Corpuscular Hemoglobin 31.1 pg (27.0-31.0); Mean Corpuscular Volume 96.7 fl (81.0-99.0); Mean Platelet Volume 5.5 fL (7.4-10.4); Platelet Count 502 thou/uL (130-400); RBC Distribution Width 12.2 % (11.5-14.5); Red Blood Cell (RBC) Count 3.49 mill/uL (4.20-5.40); White Blood Cell (WBC) Count 8.3 thou/uL (4.8-10.8)
[2017-12-08] MEDS: Docusate 100 MG CAP PO SCH (10:06)
[2017-12-08] MEDS: Famotidine 20 MG TAB PO SCH ×2 (10:06→21:03)
[2017-12-08] MEDS: Polyethylene Glycol 3350 17 GM Packet PO SCH (10:07)
[2017-12-08] MEDS ORDERED: Iopamidol 370 76% 100 ML VIAL ONE (12:43)
--- NOTE | 2017-12-08 16:34 | PDOC.PN ---
- Subjective Encounter Start Date: 12/08/17 Encounter Start Time: 16:33 Ms. Jama was seen in follow-up. She notes more abdominal soreness this morning. She has had formed stool, with some blood. She also feels a bit feverish as well. - Objective Resuscitation Status: Resuscitation Status FULL:Full Resuscitation MAR Reviewed: Yes Vital Signs & Weight: Vital Signs (12 hours) Temp Pulse Resp BP Pulse Ox 12/08/17 13:47 99.2 F 12/08/17 12:00 98.5 F 60 20 113/65 12/08/17 10:00 98.8 F 53 L 16 12/08/17 08:00 98.8 F 53 L 16 100/69 98 Weight Admit Weight 116 lb Weight 116 lb I&O: 12/07/17 12/08/17 12/09/17 06:59 06:59 06:59 Intake Total 3905 4185 Output Total 600 Balance 3305 4185 Result Diagrams: 12/08/17 06:06 12/07/17 07:30 Phys Exam - Physical Examination Patient sitting up eating- so abdominal exam not done HEENT: PERRLA Respiratory: no wheezing, no rales, no rhonchi, clear to auscultation bilateral Musculoskeletal: no edema Dx/Plan (1) Exacerbation of ulcerative colitis Code(s): K51.90 - ULCERATIVE COLITIS, UNSPECIFIED, WITHOUT COMPLICATIONS Status: Acute Qualifiers: Digestive disease complication type: with rectal bleeding Qualified Code(s) : K51.911 - Ulcerative colitis, unspecified with rectal bleeding - Plan * Ulcerative Colitis with Flair- CT scan of the abdomen is pending * Continue as per GI recommendations.
[2017-12-08] MEDS: Saccharomyces boulardii 250 MG CAP PO SCH (21:03)
[2017-12-08] MEDS: Enoxaparin Sodium 30 MG/0.3 ML SYRINGE SC SCH (21:17)
[2017-12-09] MEDS: traMADol HCl 50 MG TAB PO PRN ×4 (04:09→20:01)
[2017-12-09] MEDS: metroNIDAZOLE 500 MG in Premix Bag 1 BAG IVPB SCH ×3 (06:02→22:16)
[2017-12-09] MEDS: Sodium Chloride 0.9% 1,000 ML IV SCH ×3 (06:03→14:15)
[2017-12-09 06:14] LABS: #Lymphocytes 1.3 thou/uL (1.20-3.40); #Monocytes 0.7 thou/uL (0.11-0.59); #Neutrophils 4.5 thou/uL (1.40-6.50); %Basophils 0.3 % (0.0-1.0); %Eosinophils 0.5 % (0.0-10.0); %Lymphocytes 19.8 % (21.0-51.0); %Monocytes 10.2 % (0.0-10.0); %Neutrophils 69.2 % (42.0-75.0); Hemoglobin 9.7 g/dL (12.0-16.0); Mean Corpuscular HGB CONC 32.4 g/dL (32.0-36.0); Mean Corpuscular Hemoglobin 31.4 pg (27.0-31.0); Mean Corpuscular Volume 96.8 fl (81.0-99.0); Mean Platelet Volume 5.5 fL (7.4-10.4); Platelet Count 425 thou/uL (130-400); RBC Distribution Width 12.2 % (11.5-14.5); Red Blood Cell (RBC) Count 3.09 mill/uL (4.20-5.40); White Blood Cell (WBC) Count 6.5 thou/uL (4.8-10.8)
[2017-12-09 06:35] LABS: Anion Gap 10 mmol/L (10-20); BUN (Urea Nitrogen) Less than 4 mg/dL (7.0-18.7); Calc. Creatinine Clearance 140 mL/min (70-130); Calcium 7.9 mg/dL (7.8-10.44); Carbon Dioxide 26 mmol/L (22-29); Chloride 105 mmol/L (98-107); Estimated GFR-MDRD Greater than 90; Glucose 134 mg/dL (70-105); Potassium 3.7 mmol/L (3.5-5.1); Sodium 137 mmol/L (136-145)
[2017-12-09] MEDS: Polyethylene Glycol 3350 17 GM Packet PO SCH (09:03)
[2017-12-09] MEDS: Docusate 100 MG CAP PO SCH (09:03)
[2017-12-09] MEDS: Famotidine 20 MG TAB PO SCH ×2 (09:05→20:05)
--- NOTE | 2017-12-09 12:13 | CT ---
CT ABDOMEN AND PELVIS WITH CONTRAST: Comparison: 02-09-13 History: History of ulcerative colitis with flair of ulcerative colitis. History of Crohn's disease. Patient is had prior colon resection. Patient complains of abdominal pain. Technique: Multiple contiguous axial images were obtained in a CT of the abdomen and pelvis with cont rast. PO contrast was administered. Coronal reformats were performed. FINDINGS: There is thickening in the wall of the sigmoid colon. This extends down to the level of the rectum. T here is also mild thickening of the wall of the left colon. The transverse colon and right colon show no significant wall thickening. The small bowel is normal in caliber. There is mild stranding change surrounding the sigmoid colon. A small amount of free fluid is seen in the pelvis. No free air is id entified. The liver, gallbladder, kidneys, adrenal glands, spleen, and pancreas are unremarkable. No abdominal or pelvic lymphadenopathy are seen. The reproductive organs are unremarkable. The osseous structures, visualized upper thorax and abdominal wall soft tissues are unremarkable. IMPRESSION: There is thickening of the wall of the sigmoid colon and left colon consistent with the patient's kev gnosis of ulcerative colitis. POS: [facility]
--- NOTE | 2017-12-09 12:16 | PDOC.PN ---
- Subjective Encounter Start Date: 12/09/17 Encounter Start Time: 12:14 Ms. Jama says the abdominal pain is much better today. I discussed the urine culture results with her. She tells me she is not having any symptoms. She says when she was younger, she had a catheter placed in her bladder, and this was pulled out, and left a "pouch" and she is always colonized with bacteria. - Objective Resuscitation Status: Resuscitation Status FULL:Full Resuscitation MAR Reviewed: Yes Vital Signs & Weight: Vital Signs (12 hours) Temp Pulse Resp BP 12/09/17 12:00 98.7 F 70 20 113/75 12/09/17 09:00 98.1 F 55 L 20 12/09/17 08:00 98.1 F 55 L 20 111/71 12/09/17 04:00 97.8 F 53 L 18 109/75 Weight Admit Weight 116 lb Weight 116 lb I&O: 12/08/17 12/09/17 12/10/17 06:59 06:59 06:59 Intake Total 4185 2300 Balance 4185 2300 Result Diagrams: 12/09/17 05:52 12/09/17 05:52 Phys Exam - Physical Examination HEENT: PERRLA Respiratory: no wheezing, no rales, no rhonchi, clear to auscultation bilateral Cardiovascular: RRR, no significant murmur, no rub Gastrointestinal: soft, non-tender, positive bowel sounds Musculoskeletal: no edema Dx/Plan (1) Exacerbation of ulcerative colitis Code(s): K51.90 - ULCERATIVE COLITIS, UNSPECIFIED, WITHOUT COMPLICATIONS Status: Acute Qualifiers: Digestive disease complication type: with rectal bleeding Qualified Code(s) : K51.911 - Ulcerative colitis, unspecified with rectal bleeding - Plan * UTI- she is not symptomatic from this, and could be due to asymptomatic bactiuria- will watch for now, and should she develop symptoms then we will treat * UC Flair- Await CT scan results * Continue treatment as outlined by Dr. Mohr.
[2017-12-09] MEDS ORDERED: Polyethylene Glycol 3350 17 GM Packet PO PRN (14:56)
--- NOTE | 2017-12-09 17:12 | PRG ---
DATE OF SERVICE: 12/09/2017 SUBJECTIVE: Ms. Jama feels better today. She had a pretty bad day yesterday and she was really th ink about and asking about surgery for colitis. She has only had 1 bowel movement today with scant b lood. She had several bowel movements with the stool softener yesterday and with the oral contrast f or CAT scan. OBJECTIVE: VITAL SIGNS: Temperature is 98, pulse 70, blood pressure 113/75. ABDOMEN: Soft, nontender. LABORATORY STUDIES: White count 6.5, hemoglobin 9.7, platelet count 425. Basic metabolic profile no rmal. Urine culture from the has grown out greater than 100,000 Enterococcus sensitive to Bactr im, penicillin, nitrofurantoin, fluoroquinolones. CAT scan showed quite a bit of stool in the right colon and sigmoid colon, descending colon thickenin g with no pericolonic fat stranding or pericolonic fluid collection. ASSESSMENT: 1. Left-sided colitis, possibly improving with high dose Humira. She was still having less blood in the last 24 hours and decreased from today for sure. 2. Constipation right-sided, improved. 3. Urinary tract infection with Enterococcus. PLAN: 1. Macrodantin. 2. Continue other antibiotics and steroids. If she continues to improve, we will consider discharge in 24-48 hours.
--- NOTE | 2017-12-09 18:05 | PRG ---
DATE OF SERVICE: 12/08/2017 SUBJECTIVE: Ms. Jama yesterday complains about still not having any bowel movements. She had take n her Humira on Wednesday, which we brought to her. OBJECTIVE: VITAL SIGNS: T-max of 99.5 on 12/07/2017 at 2000 hours, pulse 50, temperature 98, blood pressure 111 /71. ABDOMEN: Soft and nontender. LUNGS: Clear. LABORATORY STUDIES: White count 8.3, hemoglobin 10.9, platelet count 502. Urinalysis was negative. Microbiology showed Enterococcus. Urine culture is still pending as of the 12/07/2017. Blood cultu res negative. Stool showed normal E. coli, but no of the E. coli. C. diff toxin was negative. Lactoferrin was positive. ASSESSMENT: Ulcerative colitis, left-sided. We are going to get a CAT scan on the . The plain f ilms showed quite a bit of stool in the right colon. This may be causing her pain when she would eat last admission. In accordance with recommendations for an IBD specialist in [place], we gave 80 mg of Humira this week. We will continue to do that weekly so we can get the to calm down.
[2017-12-09] MEDS: Saccharomyces boulardii 250 MG CAP PO SCH (20:03)
[2017-12-09] MEDS: Enoxaparin Sodium 30 MG/0.3 ML SYRINGE SC SCH (20:07)
[2017-12-09] MEDS: Nitrofurantoin Monohyd/M-Cryst 100 MG CAP PO SCH (20:13)
[2017-12-10] MEDS: Sodium Chloride 0.9% 1,000 ML IV SCH ×2 (00:55→09:28)
[2017-12-10] MEDS: traMADol HCl 50 MG TAB PO PRN ×3 (04:12→14:51)
[2017-12-10] MEDS: metroNIDAZOLE 500 MG in Premix Bag 1 BAG IVPB SCH ×2 (05:52→14:53)
[2017-12-10] MEDS: Nitrofurantoin Monohyd/M-Cryst 100 MG CAP PO SCH (08:21)
[2017-12-10] MEDS: Famotidine 20 MG TAB PO SCH (08:21)
[2017-12-10] MEDS: Docusate 100 MG CAP PO SCH (08:21)
[2017-12-10 17:02] VITALS: BP 124/81; TEMP 98.3
--- NOTE | 2017-12-11 08:48 | DIS ---
DATE OF ADMISSION: 12/06/2017 DATE OF DISCHARGE: 12/10/2017 ADMITTING DIAGNOSES: 1. Refractory ulcerative colitis. 2. Fever. 3. Tachycardia. DISCHARGE DIAGNOSES: 1. Fever, resolved, likely related to ulcerative colitis. 2. Status post an extra 40 mg of Humira loading with improvement in colitis to dropping from 15 to a bout 3 bowel movements today with less blood. 3. Constipation noted on imaging, resolved with laxatives. 4. Escherichia coli urinary tract infection with Enterococcus. 5. Allergy to FLOXINS. DISCHARGE DISPOSITION: 1. Low residue diet. 2. The patient will go home and follow up with me in the office for next Humira injection in our off ice on Wednesday. DISCHARGE MEDICATIONS: Continue prednisone 40 mg daily, mercaptopurine 50 mg daily, tramadol p.r.n. for cramps, Humira, Colace daily, stool softener for constipation. HOSPITAL COURSE: The patient admitted to the hospital and started on IV Flagyl and Levaquin. After all cultures were obtained, she did have a reaction to IV Levaquin, so this was discontinued. All bl ood cultures, stool for routine cultures, and stool for C. diff were all negative. Urine ultimately revealed the E. coli. Urinalysis showed some trace blood and the E. coli may have been fecal contami nant. With regard to her fever, chest x-ray was performed as well which was normal. Evaluation for CMV, histoplasmosis, and TB had been informed at previous hospitalization. She defervesced very quickly. She is to continue on Flagyl throughout the hospitalization and ciprof loxacin was discontinued. For 48 hours prior to discharge, she was having no fever, no tachycardia, 3-4 bowel movements a day with marked decreased amount of blood.
--- NOTE | 2017-12-11 10:26 | DIS ---
DATE OF DISCHARGE: 12/10/2017 DISCHARGE DISPOSITION: Home. FOLLOWUP: 1. Follow up with primary care physician, Dr. Alicea next week. 2. Follow up with Dr. Mohr as scheduled. The patient was seen and examined on the day of discharge. Denies any new complaints. Abdominal trenton n has improved. BRIEF HOSPITAL COURSE: The patient is a 22-year-old female with refractory ulcerative colitis who wa s admitted on 12/06/2017 with abdominal discomfort and bloody diarrhea. Her workup was consistent wi th refractory ulcerative colitis. She was started on IV steroids. She also received Humira dosing p er Dr. Mohr. Workup was also consistent with Enterococcus urinary tract infection that was treated with Macrodantin. She has been cleared by Dr. Mohr for discharge. FINAL DIAGNOSES: 1. Refractory ulcerative colitis. 2. Fever secondary to #1. 3. Constipation, resolved. 4. Enterococcus urinary tract infection. 5. CIPROFLOXACIN and CODEINE allergy. 6. Hypokalemia, corrected. 7. Chronic diarrhea. 8. Elevated platelets secondary to inflammatory process.
== END 2017-12-10 17:30 | disposition home or self-care (01) | DRG 386 ==
LOC: 3SE 11:05
PROVIDERS: ADMIT Internal Medicine; ATTEND Internal Medicine
DX: K51.90 Ulcerative colitis, unspecified, without complications (principal); N39.0 Urinary tract infection, site not specified; B95.2 Enterococcus as the cause of diseases classified elsewhere; E87.6 Hypokalemia; K59.00 Constipation, unspecified; J45.909 Unspecified asthma, uncomplicated; F41.9 Anxiety disorder, unspecified; L29.9 Pruritus, unspecified; T36.8X5A Adverse effect of other systemic antibiotics, initial encounter; Z88.5 Allergy status to narcotic agent; Z90.49 Acquired absence of other specified parts of digestive tract; Z79.899 Other long term (current) drug therapy; Y92.239 Unspecified place in hospital as the place of occurrence of the external cause
CPT/HCPCS: 36415; 71046; 74019; 74177; 80048; 80053; 81001; 81025; 83605; 83630; 83735; 84100; 85025; 86140; 87040; 87045; 87046; 87077; 87086; 87186; 87324; 87328; 87329; 87449; 87899; A4216; J0696; J0744; J1650; J2920; J3475; S0028

== ENCOUNTER 2017-12-26 16:55 | Emergency (ER) | payer OTHER ==
[2017-12-26 17:45] LABS: #Basophils 0.1 thou/uL (0.0-0.2); #Eosinphils 0.2 thou/uL (0.0-0.7); #Lymphocytes 2.2 thou/uL (1.20-3.40); #Monocytes 0.3 thou/uL (0.11-0.59); #Neutrophils 13.1 thou/uL (1.40-6.50); %Basophils 0.3 % (0.0-1.0); %Lymphocytes 13.7 % (21.0-51.0); Hemoglobin 12.3 g/dL (12.0-16.0); Mean Corpuscular Hemoglobin 30.9 pg (27.0-31.0); Mean Corpuscular Volume 93.7 fl (81.0-99.0); Mean Platelet Volume 5.5 fL (7.4-10.4); Platelet Count 482 thou/uL (130-400); RBC Distribution Width 12.7 % (11.5-14.5); Red Blood Cell (RBC) Count 3.98 mill/uL (4.20-5.40); White Blood Cell (WBC) Count 15.8 thou/uL (4.8-10.8)
[2017-12-26 17:50] LABS: BHCG - Serum Negative (NEGATIVE); PTT 33.4 SEC (22.9-36.1); Pregs Control Background? CLEAR/WHITE (CLR/WHITE); Pregs Control Bar Appear? YES (CONTROL BAR)
[2017-12-26 17:51] LABS: INR-International Normal Ratio 0.9; Prothrombin Time 12.5 SEC (12.0-14.7)
[2017-12-26 18:08] LABS: ALT (SGPT) 43 U/L (8-55); AST (SGOT) 28 U/L (5-34); Albumin 3.7 g/dL (3.5-5.0); Alkaline Phosphatase 99 U/L (40-150); Anion Gap 12 mmol/L (10-20); BUN (Urea Nitrogen) 9 mg/dL (7.0-18.7); Bilirubin, Total 0.3 mg/dL (0.2-1.2); CK (CPK) 11 U/L (29-168); Calc. Creatinine Clearance 0 mL/min (70-130); Calcium 9.5 mg/dL (7.8-10.44); Carbon Dioxide 27 mmol/L (22-29); Chloride 100 mmol/L (98-107); Estimated GFR-MDRD Greater than 90; Globulin 3.6 g/dL (2.4-3.5); Glucose 149 mg/dL (70-105); Lipase 20 U/L (8-78); Magnesium 2.1 mg/dL (1.6-2.6); Potassium 4.6 mmol/L (3.5-5.1); Protein, Total 7.3 g/dL (6.0-8.3); Sodium 134 mmol/L (136-145)
[2017-12-26 18:13] LABS: Bilirubin Negative (Negative); Blood, Urine Trace (Negative); Glucose, Urine (Dipstick) Negative (Negative); Leukocyte Negative (Negative); Nitrite Negative (Negative); Protein, Urine (Dipstick) Negative (Neg-Trace); Urobilinogen 0.2 mg/dL (0.2-1.0); pH, Urine 7.5 (5.0-9.0)
[2017-12-26 18:16] LABS: Clarity Clear (Clear)
[2017-12-26 18:19] LABS: Bacteria/HPF Rare-Few HPF (None Seen); Hyaline Casts/LPF NONE SEEN LPF (0-3 Hyaline); RBC/HPF 0-3 HPF (0-3); Squamous Epithelial 0-3 HPF (0-3); WBC/HPF None Seen HPF (0-3)
== END 2017-12-26 19:07 | disposition home or self-care (01) ==
LOC: ERS 16:55
DX: M79.81 Nontraumatic hematoma of soft tissue (principal); K58.9 Irritable bowel syndrome, unspecified; F41.9 Anxiety disorder, unspecified; F32.9 Major depressive disorder, single episode, unspecified; Z79.899 Other long term (current) drug therapy
CPT/HCPCS: 36415; 80053; 81003; 81015; 82550; 83690; 83735; 84100; 84703; 85025; 85610; 85730; 99284

== ENCOUNTER 2017-12-28 12:44 | Emergency (ER) | payer OTHER ==
[2017-12-28] MEDS ORDERED: ISOVUE-370 76%-LOCM 1 ML ONE (13:40)
[2017-12-28 14:02] LABS: Hemoglobin 11.4 g/dL (12.0-16.0); Mean Corpuscular HGB CONC 32.4 g/dL (32.0-36.0); Mean Corpuscular Hemoglobin 30.7 pg (27.0-31.0); Mean Corpuscular Volume 94.8 fl (81.0-99.0); Mean Platelet Volume 5.7 fL (7.4-10.4); Platelet Count 417 thou/uL (130-400); RBC Distribution Width 13.4 % (11.5-14.5); Red Blood Cell (RBC) Count 3.73 mill/uL (4.20-5.40); White Blood Cell (WBC) Count 25.8 thou/uL (4.8-10.8)
[2017-12-28 14:34] LABS: ALT (SGPT) 29 U/L (8-55); AST (SGOT) 12 U/L (5-34); Albumin 3.3 g/dL (3.5-5.0); Alkaline Phosphatase 89 U/L (40-150); Anion Gap 12 mmol/L (10-20); BUN (Urea Nitrogen) 15 mg/dL (7.0-18.7); Bilirubin, Total 0.3 mg/dL (0.2-1.2); Calc. Creatinine Clearance 0 mL/min (70-130); Carbon Dioxide 24 mmol/L (22-29); Chloride 100 mmol/L (98-107); Estimated GFR-MDRD Greater than 90; Globulin 3.3 g/dL (2.4-3.5); Glucose 109 mg/dL (70-105); Lipase 15 U/L (8-78); Potassium 4.3 mmol/L (3.5-5.1); Protein, Total 6.6 g/dL (6.0-8.3); Sodium 132 mmol/L (136-145)
[2017-12-28 14:47] LABS: Band 2 % (5-11); Lymphocytes 9 % (21-51); MDiff Complete? YES; Monocytes 5 % (0-10); Neutrophil 83 % (42-75); PLT Morphology Comment Appears Increased; Reactive Lymphocytes 1 % (0-10)
[2017-12-28 14:56] LABS: Bilirubin Negative (Negative); Blood, Urine Negative (Negative); Clarity CLEAR (Clear); Glucose, Urine (Dipstick) Negative (Negative); Leukocyte Small (Negative); Nitrite Negative (Negative); Protein, Urine (Dipstick) Negative (Neg-Trace); Urobilinogen 0.2 mg/dL (0.2-1.0)
[2017-12-28 14:58] LABS: Bacteria/HPF Rare-Few HPF (None Seen); Hyaline Casts/LPF 0-3 HYALINE CAST LPF (0-3 Hyaline); Pathc Cast-AUWi Flag 0.13 (0-2.49); RBC/HPF 0-3 HPF (0-3); Squamous Epithelial 0-3 HPF (0-3)
--- NOTE | 2017-12-28 15:44 | CT ---
CTA OF CHEST WITH CONTRAST: Date: 12/28/17 COMPARISON: None. HISTORY: Shortness of breath and chest pain. TECHNIQUE: Multiple contiguous axial images were obtained in a CTA of the chest per pulmonary embolism protocol. 3D oblique MIP reformats and direct coronal reformats were performed. FINDINGS: The heart is normal in size without focal cardiac abnormality. The pulmonary arteries are well opacif ied and without filling defects to suggest pulmonary emboli. No hilar or mediastinal lymphadenopathy seen. No pneumothorax or pleural effusions are seen. No focal infiltrates or lung nodules are seen. The bones of the thorax and chest wall soft tissues are unremarkable. Please see dedicated abdominal CT for findings below the diaphragm. IMPRESSION: No evidence of pulmonary thromboembolism. POS: [facility]
--- NOTE | 2017-12-28 16:09 | CT ---
CT ABDOMEN AND PELVIS WITH CONTRAST: Date: 12/28/17 Multiple axial tomograms obtained through the abdomen and pelvis with IV enhancement. HISTORY: Abdominal pain. Possible infection at ostomy site. Pain at ostomy site. FINDINGS: Lung bases are clear. Liver, spleen, and pancreas are unremarkable. Adrenal glands normal. Kidneys unremarkable. No hydronephrosis or calculi. Urinary bladder is distend ed and appears unremarkable. Small bowel loops appear normal. Patient is post colectomy since the prior CT of 12/08/17. There is an ostomy in the right abdomen. Re ctosigmoid stump is noted with suture line. No free fluid within the abdomen or pelvis. There is no fluid collection or evidence of abscess at the ostomy. Uterus and adnexa appear unremarkable. Nonspecific mesenteric lymph nodes are seen at the base of the mesentery, all subcentimeter in dimens ion. IMPRESSION: Post colectomy since prior exam. Ostomy in right abdomen is noted. There is no evidence of fluid or a bscess collection at the ostomy site by CT. POS: [facility]
--- NOTE | 2018-01-01 17:46 | EKG ---
Test Reason : SYNCOPE Blood Pressure : / mmHG Vent. Rate : 068 BPM Atrial Rate : 068 BPM P-R Int : 090 ms QRS Dur : 070 ms QT Int : 372 ms P-R-T Axes : 033 024 030 degrees QTc Int : 395 ms Sinus rhythm with short MI Otherwise normal ECG Confirmed by MEERA TANNER, VICKI ([id number]), editorial cartoonist RAIZA ORDAZ ([id number]) on 01/01/2018 5:46:13 PM Referred By: Confirmed By:VICKI ESTES MD
== END 2017-12-28 17:46 | disposition home or self-care (01) ==
LOC: ERS 12:44
DX: E86.0 Dehydration (principal); D72.829 Elevated white blood cell count, unspecified; F41.9 Anxiety disorder, unspecified; F32.9 Major depressive disorder, single episode, unspecified
CPT/HCPCS: 36415; 71275; 74177; 80053; 81003; 81015; 83690; 84100; 85025; 85379; 87086; 93005; 96360; 96361

== ENCOUNTER 2018-07-24 02:49 | Emergency (ER) | payer OTHER ==
[2018-07-24] MEDS ORDERED: Acetaminophen/Codeine 30-300mg Tablet ONE (04:03)
== END 2018-07-24 04:12 | disposition home or self-care (01) ==
LOC: ERS 02:49
DX: H60.91 Unspecified otitis externa, right ear (principal); H66.91 Otitis media, unspecified, right ear; F41.9 Anxiety disorder, unspecified; F32.9 Major depressive disorder, single episode, unspecified
CPT/HCPCS: 99282

== ENCOUNTER 2019-01-02 01:37 | Observation (INO) | payer OTHER ==
[2019-01-02] MEDS ORDERED: Ondansetron PF 4 MG/2 ML Vial ONE (04:11)
[2019-01-02 04:27] LABS: BHCG - Serum Negative (NEGATIVE); Pregs Control Background? CLEAR/WHITE (CLR/WHITE); Pregs Control Bar Appear? YES (CONTROL BAR)
[2019-01-02 04:39] LABS: Band 20 % (5-11); Hemoglobin 16.8 g/dL (12.0-16.0); Lymphocytes 3 % (21-51); MDiff Complete? YES; Mean Corpuscular HGB CONC 33.3 g/dL (32.0-36.0); Mean Corpuscular Hemoglobin 30.6 pg (27.0-31.0); Mean Platelet Volume 6.3 fL (7.4-10.4); Monocytes 3 % (0-10); Neutrophil 74 % (42-75); Platelet Count 467 thou/uL (130-400); Platelet Morphology Comment Appears Adequate; RBC Distribution Width 11.8 % (11.5-14.5); Red Blood Cell (RBC) Count 5.48 mill/uL (4.20-5.40); White Blood Cell (WBC) Count 14.8 thou/uL (4.8-10.8)
[2019-01-02 04:40] LABS: ALT (SGPT) 32 U/L (8-55); AST (SGOT) 20 U/L (5-34); Albumin 5.1 g/dL (3.5-5.0); Alkaline Phosphatase 115 U/L (40-150); Anion Gap 21 mmol/L (10-20); BUN (Urea Nitrogen) 14 mg/dL (7.0-18.7); Bilirubin, Total 1.1 mg/dL (0.2-1.2); Calc. Creatinine Clearance 0 mL/min (70-130); Calcium 10.7 mg/dL (7.8-10.44); Carbon Dioxide 19 mmol/L (22-29); Chloride 99 mmol/L (98-107); Estimated GFR-MDRD 43; Globulin 4.8 g/dL (2.4-3.5); Glucose 141 mg/dL (70-105); Potassium 4.4 mmol/L (3.5-5.1); Protein, Total 9.9 g/dL (6.0-8.3); Sodium 135 mmol/L (136-145)
[2019-01-02] MEDS ORDERED: Acetaminophen 500 MG TAB ONE (05:18)
[2019-01-02 05:33] LABS: Bilirubin Negative (Negative); Blood, Urine Negative (Negative); Clarity CLOUDY (Clear); Glucose, Urine (Dipstick) Negative (Negative); Leukocyte Moderate (Negative); Nitrite Negative (Negative); Protein, Urine (Dipstick) 30 mg/dL (Neg-Trace); Specific Gravity, Urine 1.015 (1.002-1.036); Urobilinogen 0.2 mg/dL (0.2-1.0); pH, Urine 5.5 (5.0-9.0)
[2019-01-02 05:36] LABS: Bacteria/HPF Rare-Few HPF (None Seen); Squamous Epithelial 0-3 HPF (0-3); WBC/HPF 21-50 HPF (0-3)
[2019-01-02 05:38] LABS: Pathc Cast-AUWi Flag 5.66 (0-2.49)
[2019-01-02 05:59] LABS: Hyaline Casts/LPF NONE SEEN LPF (0-3 Hyaline); RBC/HPF 0-3 HPF (0-3)
[2019-01-02] MEDS ORDERED: MEROPENEM 1 GM/50 ML 1 GM in Premix Bag 1 BAG IVPB SCH (06:00)
--- NOTE | 2019-01-02 06:34 | CT ---
CT ABDOMEN AND PELVIS WITH IV CONTRAST: INDICATIONS: History of abdominal pain with Crohn disease and ileostomy. The patient has been having vomiting ove r the course of several hours with excessive emptying of the ileostomy bag. COMPARISON: CT abdomen and pelvis dated 12/28/2017. FINDINGS: The lung bases are clear. There is a slight mosaic perfusion pattern involving the right hepatic lobe, which may be related to transient hepatic attenuation difference. No focal hepatic lesion is otherwise evident. The anterio r pancreas, adrenal glands, and spleen appear within normal limits. The kidneys are normal appearing . There is a stable right lower quadrant ileostomy. There has been interval revision in the lower pelvis of the bowel. There appears to have been an int erval complete colectomy. Previously, there was a long Goklu's pouch in place. 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 A small amount of free fluid i s present within the pelvis. There is a peripherally enhancing hypodensity seen within the region of the left adnexa, which may reflect an involuting cyst, measuring up to 1.7 cm. There is a suspected follicular cyst within the right ovary, measuring 2.2 cm. No enlarged lymph nodes are evident. No definite acute osseous abnormality is evident. IMPRESSION: 1. Interval revision of the patient's previously seen long Gokul's pouch. There has been removal of the long Gokul's pouch and establishment of an ileorectal anastomosis. The right lower quadra nt loop ileostomy does not appear significantly changed. There is no evidence of upstream bowel dila tation, suggestive of obstruction. 2. Mild free fluid in the pelvis is nonspecific. The patient does have an suspected involuting cyst involving the left adnexa. A pelvic ultrasound may be helpful for improved characterization, as a c yst rupture could produce the above findings. 3. Right ovarian follicular cyst suspected. 4. Slight mosaic perfusion abnormality involving the right hepatic lobe may be related to transient hepatic attenuation difference or fatty infiltration of the liver. No definite suspicious focal hepa tic abnormality is grossly evident. POS: [facility]
[2019-01-02] MEDS ORDERED: Ondansetron ODT 4 MG TAB PO PRN (08:56)
[2019-01-02] MEDS ORDERED: Ondansetron PF 4 MG/2 ML Vial IVP PRN (08:56)
--- NOTE | 2019-01-02 09:25 | PDOC.EVN ---
Addendum - Attending - Attending Attestation Date/Time: 01/02/19 1158 I personally evaluated the patient and discussed the management with Dr. Constantino. I agree with the History, Examination, Assessment and Plan documented in his electronic H&P with any addition or exceptions noted below. Patient with PMHx of UC that is now s/p colectomy and in process of J pouch formation and anastomosis here with 14 hours of nausea, vomiting, increased ostomy output. Reports that symptoms started immediately last night. Reports positive sick contact with similar symptoms over the last few days. She has had some back pain, chills, sweats, generalized malaise in addition to N/V x multiple episodes. Reports midepigastric pain but denies lower abdominal pain. She is s/p IVF and Meropenem in the ER. CT obtained which showed mild free fluid , ovarian cyst, but did not reveal any GI pathology or issues with her tract. Labs are consistent with hemoconcentration and MARTHA. She will be admitted to obs for suspected gastroenteritis, but consider sepsis, obstruction, pouchitis, other intraabdominal pathology. Fluid hydrate, nausea control, await culture results. Will consider repeat abx if clinical condition does not improve or worsens.
[2019-01-02] MEDS ORDERED: Sodium Chloride 0.9% 10 ML ONE (09:32)
[2019-01-02] MEDS: Lactated Ringer's 1,000 ML IV SCH ×2 (09:37→18:18)
[2019-01-02] MEDS: metroNIDAZOLE 500 MG TAB PO SCH ×3 (09:48→21:40)
[2019-01-02] MEDS ORDERED: ISOVUE-370 76%-LOCM 1 ML ONE (10:38)
--- NOTE | 2019-01-02 10:49 | PDOC.FPRHP ---
- History of Present Illness Chief Complaint: Abdominal Pain History of Present Illness: 23 yo F w/hx of Crohn's s/p total colectomy with diverting ileostomy here with complaint of epigastric abdominal pain with vomiting and increased watery stool output since the about 1800 on 12/22. Due to feeling lightheaded and she presented to the ER where work up found an elevated WBC count and abd CT with concern for small amounts of non specific intra abdominal fluid. She was given 2L of NS and IV zofran. Associated symptoms include chills and back pain. She has been around a small child with similar symptoms. At the time of evaluation pain, nausea, and ostomy output had improved - Allergies/Adverse Reactions Allergies Allergy/AdvReac Type Severity Reaction Status Date / Time ciprofloxacin Allergy Unknown Rash Verified 12/06/17 13:49 codeine Allergy Verified 12/06/17 12:08 hydrocodone [From [place]] Allergy Verified 01/02/19 09:03 Penicillins Allergy Verified 01/02/19 09:03 - History PMHx: Crohn's Disease PSHx: Total colectomy with diverting ileostomy 10/25 FHx: Non contributory Social: Denies etoh, tobacco, recreational drugs - Review of Systems General: reports: fever/chills Eyes: denies: vision changes ENT: denies: nasal congestion Respiratory: denies: cough, congestion, shortness of breath Cardiovascular: denies: chest pain, palpitation Gastrointestinal: reports: nausea, vomiting, other (Watery stool in ostomy) Genitourinary: denies: incontinence, dysuria, polyuria Skin: denies: rashes Musculoskeletal: denies: pain, tenderness Neurological: denies: numbness, syncope Psychological: denies: anxiety, depression - Vital signs BP: 105/68 HR: 94 RR: 16 Tmax: 98.8 Pox: 98% on RA Wt: 60 kg - Physical Exam Constitutional: NAD, awake, alert and oriented HEENT: normocephalic and atraumatic, PERRLA, EOMI, conjunctiva clear, no scleral icterus, grossly normal vision, grossly normal hearing, MMM Neck: trachea midline Chest: no-tender to palpation Heart: RRR, normal S1/S2, no edema Lungs: CTAB, no respiratory distress Abdomen: soft, non-tender, bowel sounds present -Abdomen: Ostomy site is clean, w/o erythema or exudate Musculoskeletal: normal structure, normal tone, ROM grossly normal Neurological: no focal deficit, CN II-XII intact Skin: no rash/lesions, good turgor, capillary refill <2 seconds Heme/Lymphatic: no unusual bruising or bleeding Psychiatric: normal mood and affect, good judgment and insight FMR H&P: Results - Labs Result Diagrams: 01/02/19 04:00 01/02/19 04:00 Lab results: WBC 14.8 thou/uL (4.8-10.8) H 01/02/19 04:00 Hgb 16.8 g/dL (12.0-16.0) H 01/02/19 04:00 Hct 50.4 % (36.0-47.0) H 01/02/19 04:00 MCV 92.0 fL (78.0-98.0) 01/02/19 04:00 Plt Count 467 thou/uL (130-400) H 01/02/19 04:00 Band Neuts % (Manual) 20 % (5-11) H 01/02/19 04:00 Sodium 135 mmol/L (136-145) L 01/02/19 04:00 Potassium 4.4 mmol/L (3.5-5.1) 01/02/19 04:00 Chloride 99 mmol/L (98-107) 01/02/19 04:00 Carbon Dioxide 19 mmol/L (22-29) L 01/02/19 04:00 BUN 14 mg/dL (7.0-18.7) 01/02/19 04:00 Creatinine 1.49 mg/dL (0.6-1.1) H 01/02/19 04:00 Glucose 141 mg/dL (70-105) H 01/02/19 04:00 Calcium 10.7 mg/dL (7.8-10.44) H 01/02/19 04:00 Total Bilirubin 1.1 mg/dL (0.2-1.2) 01/02/19 04:00 AST 20 U/L (5-34) 01/02/19 04:00 ALT 32 U/L (8-55) 01/02/19 04:00 Alkaline Phosphatase 115 U/L (40-150) 01/02/19 04:00 Serum Total Protein 9.9 g/dL (6.0-8.3) H 01/02/19 04:00 Albumin 5.1 g/dL (3.5-5.0) H 01/02/19 04:00 Urine Ketones Trace mg/dL (Negative) H 01/02/19 04:50 Urine Blood Negative (Negative) 01/02/19 04:50 Urine Nitrite Negative (Negative) 01/02/19 04:50 Ur Leukocyte Esterase Moderate (Negative) H 01/02/19 04:50 Urine RBC 0-3 HPF (0-3) 01/02/19 04:50 Urine WBC 21-50 HPF (0-3) H 01/02/19 04:50 Ur Squamous Epith Cells 0-3 HPF (0-3) 01/02/19 04:50 Urine Bacteria Rare-Few HPF (None Seen) 01/02/19 04:50 - Radiology Interpretation CT scan - abdomen Status: image reviewed by me, report reviewed by me (Mild free fluid in pelvis, non specific. B/l ovarial cysts, L appears to be involuting) FMR H&P: A/P - Problem List (1) Gastroenteritis Current Visit: Yes Status: Suspected Code(s): K52.9 - NONINFECTIVE GASTROENTERITIS AND COLITIS, UNSPECIFIED (2) MARTHA (acute kidney injury) Current Visit: Yes Status: Acute Code(s): N17.9 - ACUTE KIDNEY FAILURE, UNSPECIFIED (3) Leukocytosis Current Visit: Yes Status: Acute Code(s): D72.829 - ELEVATED WHITE BLOOD CELL COUNT, UNSPECIFIED (4) Polycythemia Current Visit: Yes Status: Acute Code(s): D75.1 - SECONDARY POLYCYTHEMIA (5) Thrombocytosis Current Visit: Yes Status: Acute (6) Crohn's disease in remission Current Visit: Yes Status: Chronic Code(s): K50.90 - CROHN'S DISEASE, UNSPECIFIED, WITHOUT COMPLICATIONS (7) Pelvic fluid collection Current Visit: Yes Status: Acute Code(s): R18.8 - OTHER ASCITES (8) Ovarian cyst Current Visit: Yes Status: Acute Code(s): N83.209 - UNSPECIFIED OVARIAN CYST , UNSPECIFIED SIDE - Plan 1. Gastroenteritis, suspected - given hx of sick contacts and presenting symptoms gastroenteritis appears to be most likely dx. DDx includes pouchitis, SBO, anastomotic leak. - Influenza swab is pending. - Continue to control n/v with zofran - IVF - advance diet as tolerated - will consider re imaging abdomen if abdominal pain returns, at current time there are no signs of acute abdomen - due to non functional j pouch, likelihood of pouchitis is low. 2. MARTHA - due to volume depletion, treat as above. Repeat labs in am 3. Leukocytosis - most likely related to volume contraction 4. Polycythemia - volume contraction 5. Thrombocytosis - dt volume contraction 6. Crohn's - this does not appear to be an acute exacerbation at this time as her symptoms have resolved without steroids. - Low fiber diet dt colectomy 7. Free pelvic fluid on CT - most likely source is ovarian cyst. Will continue to monitor status. 8. B/l ovarian cyst - incidental finding PPx SCD Diet Fiber restricted Code Full Dispo: Monitor symptoms over night and recheck kidney fx in the morning. Likely dc tomorrow. FMR H&P: Upper Level - Plan Date/Time: 01/02/19 1045 I, [], have evaluated this patient and agree with findings/plan as outlined by intern architect resident. Pertinent changes/additions are listed here. Addendum - Attending - Attending Attestation Date/Time: 01/02/19 1313 I personally evaluated the patient and discussed the management with Dr. Constantino. I agree with the History, Examination, Assessment and Plan documented above with any addition or exceptions noted below.
[2019-01-02] MEDS ORDERED: Acetaminophen 325 MG TAB PO PRN (14:48)
[2019-01-02] MEDS ORDERED: Ibuprofen 800 MG TAB PO PRN (16:21)
[2019-01-03] MEDS: Lactated Ringer's 1,000 ML IV SCH (02:56)
[2019-01-03 07:08] LABS: Anion Gap 15 mmol/L (10-20); BUN (Urea Nitrogen) 9 mg/dL (7.0-18.7); Calc. Creatinine Clearance 106 mL/min (70-130); Calcium 9.2 mg/dL (7.8-10.44); Carbon Dioxide 20 mmol/L (22-29); Chloride 102 mmol/L (98-107); Estimated GFR-MDRD Greater than 90; Glucose 102 mg/dL (70-105); Potassium 3.7 mmol/L (3.5-5.1); Sodium 133 mmol/L (136-145)
[2019-01-03 07:19] LABS: #Eosinphils 0.4 thou/uL (0.0-0.7); #Lymphocytes 1.8 thou/uL (1.20-3.40); #Monocytes 0.7 thou/uL (0.11-0.59); #Neutrophils 2.8 thou/uL (1.40-6.50); %Basophils 0.4 % (0.0-1.0); %Eosinophils 7.8 % (0.0-10.0); %Lymphocytes 31.5 % (21.0-51.0); %Monocytes 12.1 % (0.0-10.0); %Neutrophils 48.3 % (42.0-75.0); Hemoglobin 13.2 g/dL (12.0-16.0); Mean Corpuscular HGB CONC 32.9 g/dL (32.0-36.0); Mean Corpuscular Hemoglobin 30.6 pg (27.0-31.0); Mean Corpuscular Volume 93.1 fL (78.0-98.0); Mean Platelet Volume 6.2 fL (7.4-10.4); Platelet Count 410 thou/uL (130-400); RBC Distribution Width 11.9 % (11.5-14.5); Red Blood Cell (RBC) Count 4.31 mill/uL (4.20-5.40); White Blood Cell (WBC) Count 5.8 thou/uL (4.8-10.8)
--- NOTE | 2019-01-03 08:04 | PDOC.FM ---
- Subjective Subjective: Seen at bedside this morning. No new complaints. States that abdominal pain/ cramping has significantly improved. Still having increased watery output from ileostomy. No n/v, taking PO liquids. Plans to try food this morning. No acute events over night. - Objective MAR Reviewed: Yes Vital Signs & Weight: Vital Signs (12 hours) Temp Pulse Resp BP Pulse Ox 01/03/19 04:00 98.1 F 78 16 100/59 L 98 01/02/19 23:35 98.3 F 90 16 108/61 98 Weight Weight 59 kg I&O: 01/02/19 01/03/19 01/04/19 06:59 06:59 06:59 Intake Total 2282 Output Total 1999 Balance 282 Result Diagrams: 01/03/19 06:43 01/03/19 06:43 Phys Exam - Physical Examination Constitutional: NAD HEENT: moist MMs, sclera anicteric Neck: full ROM Respiratory: clear to auscultation bilateral Cardiovascular: RRR, no significant murmur Gastrointestinal: soft, non-tender, no distention, positive bowel sounds ostomy site clean Musculoskeletal: no edema Neurological: non-focal, moves all 4 limbs Psychiatric: normal affect, A&O x 3 Skin: no rash Dx/Plan (1) Gastroenteritis Code(s): K52.9 - NONINFECTIVE GASTROENTERITIS AND COLITIS, UNSPECIFIED Status : Suspected (2) MARTHA (acute kidney injury) Code(s): N17.9 - ACUTE KIDNEY FAILURE, UNSPECIFIED Status: Acute (3) Leukocytosis Code(s): D72.829 - ELEVATED WHITE BLOOD CELL COUNT, UNSPECIFIED Status: Acute (4) Polycythemia Code(s): D75.1 - SECONDARY POLYCYTHEMIA Status: Acute (5) Thrombocytosis Status: Acute (6) Crohn's disease in remission Code(s): K50.90 - CROHN'S DISEASE, UNSPECIFIED, WITHOUT COMPLICATIONS Status: Chronic (7) Pelvic fluid collection Code(s): R18.8 - OTHER ASCITES Status: Acute (8) Ovarian cyst Code(s): N83.209 - UNSPECIFIED OVARIAN CYST, UNSPECIFIED SIDE Status: Acute - Plan Plan: 1. Gastroenteritis, suspected - Improving, would expect n/v to improve before diarrhea - Influenza swab negative - No longer needing Zofran - d/c fluids, will trial PO only today, advance diet as tolerated - At this time anastomotic leak seems unlikely, will continue to monitor and consider repeat imaging if symptoms worsen 2. MARTHA, resolved 3. Leukocytosis, resolved 4. Polycythemia, resolved 5. Thrombocytosis - persisting, most likely related to inflammatory reaction 6. Crohn's - Low fiber diet dt colectomy 7. Free pelvic fluid on CT - most likely source is ovarian cyst. Will continue to monitor status. 8. B/l ovarian cyst - incidental finding Dispo: Pending PO trial today, pt will be ready to dc this afternoon Addendum - Attending - Attending Attestation Date/Time: 01/03/19 6964 I personally evaluated the patient and discussed the management with Dr. Constantino I agree with the History, Examination, Assessment and Plan documented above with any addition or exceptions noted below. Today abdomen benign- soft, nt/nd, +bs. Still with doubled ostomy output but no n/v. Tolerated a small amount of breakfast today. Stool studies negative thus far. Viral GE- continue supportive care Dehydration with prerenal MARTHA- Cr at baseline with IVF. d/c fluids and ensure that able to maintain hydration. Expect d/c this pm or tomorrow am pending course.
[2019-01-03] MEDS: metroNIDAZOLE 500 MG TAB PO SCH ×2 (08:26→15:37)
[2019-01-03 17:51] VITALS: BP 113/66; TEMP 99.2
--- NOTE | 2019-01-04 14:56 | DIS ---
DATE OF ADMISSION: 01/02/2019 DATE OF DISCHARGE: 01/03/2019 DISCHARGE ATTENDING: Vickie Eller M.D. RESIDENT: Hank Constantino DO. CONSULTS: None. PROCEDURE: CT abdomen and pelvis on 01/02/2019. Finding, interval revision of patient previously long Gokul's pouch and establishment of ileorectal anastomosis. No evidence of bowel dilatation. Mild free fluid in the pelvis, nonspecific fluid was found to be in the left adnexa and suspected to be associated with an involuting left ovarian cyst. Right ovarian follicular cyst. ADMITTING DIAGNOSES: 1. Acute kidney injury. 2. Gastroenteritis. SECONDARY DIAGNOSES: 1. Leukocytosis. 2. Polycythemia. 3. Crohn's disease in remission. 4. Ovarian cyst. DISCHARGE MEDICATIONS: 1. Flagyl 500 mg p.o. t.i.d. 2. Zofran 4 mg p.o. q.6 hours p.r.n. nausea and vomiting. HOSPITAL SUMMARY: This is a 23-year-old female with a history of Crohn's disease status post total colectomy with diverting ileostomy in 10/2018. She was admitted for acute kidney injury secondary to a gastroenteritis. Prior to presentation to the emergency room, patient was having significant epigastric pain and cramping with significantly increased watery output into her ostomy bag. She was also having significant nausea and vomiting. The patient was given Zofran in the emergency room, which significantly improved her nausea and vomiting; however her ileostomy output continued. Due to recent surgery and finding of nonspecific fluid in her pelvis, there was concern of a possible anastomotic leak, the patient was given meropenem in the emergency room and covered for gram-negatives. Upon admission, the patient was given intravenous fluid resuscitation and worked up for possible infectious etiology for this gastroenteritis. Labs found positive stool lactoferin ans negative Shiga toxin. Preliminary stool culture finding normal enteric kelly, C-diff Antigen and Toxin were negative and a negative flu. Over the course of admission, the patient recovered quickly and did well with intravenous fluid resuscitation. On second day of admission, fluids were stopped and the patient was able to take liquids and solids p.o. without Zofran. The patient was monitored on second day of admission until patient felt comfortable with being able to maintain hydration her own. The patient was discharged on Flagyl due to concern for potential pouchitis and the fact that the stool culture was not yet finalized. Prior to discharge, the patient was comfortable going home with her ability to maintain her hydration status. DISCHARGE INSTRUCTIONS: Location: Home. Followup: With PCP within a week. Diet: Advance as tolerated. Low fiber. Job ID: [id number] [email or web address]
== END 2019-01-03 18:02 | disposition home or self-care (01) ==
LOC: ERS 01:37 → 3SE 07:26
PROVIDERS: ADMIT Family Medicine; ATTEND Family Medicine
DX: K52.9 Noninfective gastroenteritis and colitis, unspecified (principal); N17.9 Acute kidney failure, unspecified; D72.829 Elevated white blood cell count, unspecified; D75.1 Secondary polycythemia; K50.90 Crohn's disease, unspecified, without complications; N83.01 Follicular cyst of right ovary; R18.8 Other ascites; Z88.0 Allergy status to penicillin; Z88.1 Allergy status to other antibiotic agents; Z88.5 Allergy status to narcotic agent; Z90.49 Acquired absence of other specified parts of digestive tract; Z93.2 Ileostomy status
CPT/HCPCS: 36415; 74177; 80048; 80053; 81003; 81015; 83630; 84703; 85025; 87045; 87046; 87324; 87449; 87804; 87899; 96361; 96365; 96375; 96376; G0378; J2185; J2405; Q9966